=== PATIENT | male | born 1970 | race Hispanic/Latino ===

== ENCOUNTER 2016-10-28 09:26 | Emergency (ER) | payer MEDICAID ==
[2016-10-28 09:45] VITALS: TEMP 97.9; O2SAT 99
[2016-10-28 09:48] VITALS: BMI 25.1
[2016-10-28] MEDS ORDERED: Sodium Chloride 0.9% 1,000 ML IV ONE (09:59)
[2016-10-28 10:12] LABS: ADD MANUAL DIFF? NO; BASO % 1.1 % (0.0-3.0); EOS # 0.5 (0.0-0.7); EOS % 5.4 % (1.5-5.0); GRAN % 63.5 % (50.0-68.0); HEMATOCRIT 44.7 % (42.0-52.0); LYMPH # 2.1 (1.2-3.4); LYMPH % 22.9 % (22.0-35.0); MEAN CELL VOLUME 86.3 fL (80.0-105.0); MEAN CORPUSCULAR HEMOGLOBIN 30.5 pg (25.0-35.0); MEAN CORPUSCULAR HGB CONC 35.3 g/dl (31.0-37.0); MEAN PLATELET VOLUME 10.8 fl (7.0-11.0); MONO # 0.7 (0.1-0.6); MONO % 7.1 % (1.0-6.0); PLATELET COUNT 289 10^3/uL (120.0-450.0); RED CELL DISTRIBUTION WIDTH 12.7 % (11.5-14.5); WHITE BLOOD COUNT 9.1 10^3/ul (4.5-11.0)
[2016-10-28 10:29] LABS: ALB/GLOB RATIO 1.6 (1.1-1.8); ALKALINE PHOSPHATASE 122 U/L (38-133); ALT/SGPT 34 U/L (7-56); AST/SGOT 21 U/L (15-59); BILIRUBIN,TOTAL 0.5 mg/dL (0.2-1.3); BLOOD UREA NITROGEN 15 mg/dL (7-21); CALCIUM 9.8 mg/dL (8.4-10.5); CARBON DIOXIDE 27 mmol/L (21-33); CHLORIDE 105 mmol/L (98-107); GFR AFRICAN-AMERICAN > 60; GLUCOSE,RANDOM 122 mg/dL (70-110); MAGNESIUM 1.9 mg/dL (1.7-2.2); POTASSIUM 4.5 mmol/L (3.6-5.0); SODIUM 140 mmol/L (132-148); TOTAL PROTEIN 7.1 g/dL (5.8-8.3)
[2016-10-28] MEDS ORDERED: oxyCODONE 5 mg Immediate Release Tab PO STA (10:32)
[2016-10-28 10:41] LABS: TROPONIN I < 0.01 ng/mL
--- NOTE | 2016-10-28 11:03 | RAD ---
HISTORY: dizziness COMPARISON: 06/15/2015 FINDINGS: LUNGS: No active pulmonary disease. PLEURA: No significant pleural effusion identified, no pneumothorax apparent. CARDIOVASCULAR: Normal. OSSEOUS STRUCTURES: No significant abnormalities. VISUALIZED UPPER ABDOMEN: Normal. OTHER FINDINGS: None. IMPRESSION: No active disease.
[2016-10-28 11:20] VITALS: RESP 18
[2016-10-28 11:42] LABS: URINE BILIRUBIN NEGATIVE (NEGATIVE); URINE BLOOD MODERATE (NEGATIVE); URINE GLUCOSE (UA) NEGATIVE (NEGATIVE); URINE KETONE NEGATIVE (NEGATIVE); URINE LEUKOCYTE ESTERASE SMALL Leu/uL (NEGATIVE); URINE PROTEIN 30 mg/dL (<30 mg/dL); URINE UROBILINOGEN 0.2 E.U./dL (<1 E.U./dL)
[2016-10-28 11:54] LABS: URINE COLOR YELLOW (YELLOW)
[2016-10-28 11:55] LABS: URINE APPEARANCE CLEAR (CLEAR)
[2016-10-28 12:03] LABS: URINE EPITHELIAL CELLS 0 - 2 /hpf (0-5)
[2016-10-28 12:04] LABS: URINE BACTERIA SMALL (NEG)
--- NOTE | 2016-10-28 12:10 | CT ---
PROCEDURE: CT HEAD WITHOUT CONTRAST. HISTORY: r/o ICH COMPARISON: None available. TECHNIQUE: Axial computed tomography images were obtained through the head/brain without intravenous contrast. Radiation dose: Total exam DLP = 688 mGy-cm. This CT exam was performed using one or more of the following dose reduction techniques: Automated exposure control, adjustment of the mA and/or kV according to patient size, and/or use of iterative reconstruction technique. FINDINGS: HEMORRHAGE: No intracranial hemorrhage. BRAIN: No mass effect or edema. No atrophy or chronic microvascular ischemic changes. VENTRICLES: Unremarkable. No hydrocephalus. CALVARIUM: Unremarkable. PARANASAL SINUSES: Unremarkable as visualized. No significant inflammatory changes. MASTOID AIR CELLS: Unremarkable as visualized. No inflammatory changes. OTHER FINDINGS: None. IMPRESSION: Normal CT of the Head.
--- NOTE | 2016-10-28 13:24 | ED PDOC ---
Arrival/HPI - General Chief Complaint: Dizziness/Lightheaded Time Seen by Provider: 10/28/16 09:39 Historian: Patient - History of Present Illness Narrative History of Present Illness (Text): 10/28/16 09:40 A 46 year old male presents to the emergency department complaining of dizzy spells and multiple falls over the past 3 days. Patient reports yesterday when walking up the stairs he felt short of breath. He states he went to work this morning but was felling really weak, so he decided to come to the emergency department for evaluation. Patient denies any chest pain or other complaints at this time. Patient mentions 2 years ago he had a nuclear stress test but he does not know the results. PMD: Dr. Butt Time/Duration: Other (3 days) Symptom Onset: Sudden Symptom Course: Intermittent Quality: Other Activities at Onset: Rest Context: Home Past Medical History - Provider Review Nursing Documentation Reviewed: Yes - Infectious Disease Hx of Infectious Diseases: None - Tetanus Immunization Tetanus Immunization: Up to Date - Reproductive Currently : No - Past Medical History Past Medical History: No Previous - Cardiac Hx Pacemaker: No - Pulmonary Hx Respiratory Disorders: No Other/Comment: patient denies - Neurological Hx Paralysis: No - HEENT Hx HEENT Disorder: No Other/Comment: patient denies - Renal Hx Kidney Stones: Yes (STENT) - Endocrine/Metabolic Hx Endocrine Disorders: No Other/Comment: patient denies - Hematological/Oncological Hx Blood Transfusions: No Hx Blood Transfusion Reaction: No - Integumentary Hx Dermatological Disorder: No Other/Comment: patient denies - Musculoskeletal/Rheumatological Hx Musculoskeletal Disorders: Yes - Gastrointestinal Hx Gastrointestinal Disorders: No Other/Comment: patient denies - Genitourinary/Gynecological Hx Genitourinary Disorders: No Other/Comment: patient denies - Psychiatric Hx Emotional Abuse: No Hx Physical Abuse: No Hx Substance Use: No - Past Surgical History Past Surgical History: No Previous - Surgical History Other/Comment: kidney stent - Anesthesia Hx Anesthesia: Yes Hx Anesthesia Reactions: No Hx Malignant Hyperthermia: No - Suicidal Assessment Feels Threatened In Home Enviroment: No Family/Social History - Physician Review Nursing Documentation Reviewed: Yes Family/Social History: Unknown Family HX Smoking Status: Light Smoker < 10 Cigarettes Daily Hx Alcohol Use: Yes Hx Substance Use: No Hx Substance Use Treatment: No Allergies/Home Meds Allergies/Adverse Reactions: Allergies cats Allergy (Intermediate, Uncoded 10/28/16 09:48) RASH polen Allergy (Intermediate, Uncoded 10/28/16 09:48) RASH Home Medications: Home Meds Medication Instructions Recorded Confirmed [place]-3 Fatty Acids [Fish Oil] 300 mg PO DAILY 10/28/16 10/28/16 diaZEpam [Valium] 4 mg PO QID 10/28/16 10/28/16 oxyCODONE/Acetaminophen [Percocet 1 tab PO PRN PRN 10/28/16 10/28/16 5/325 mg Tab] Review of Systems - Physician Review All systems were reviewed & negative as marked: Yes - Review of Systems Constitutional: Fatigue, Other (falls). absent: Fevers Cardiovascular: CONNOLLY. absent: Chest Pain Neurological: Dizziness Physical Exam Vital Signs Reviewed: Yes Vital Signs Temp Pulse Resp BP Pulse Ox 10/28/16 15:00 69 18 121/63 99 10/28/16 13:08 75 18 122/66 99 10/28/16 12:15 79 18 124/68 99 10/28/16 11:20 89 18 126/71 99 10/28/16 09:27 97.9 F 93 H 22 108/74 99 Temperature: Afebrile Blood Pressure: Normal Pulse: Regular Respiratory Rate: Normal Appearance: Positive for: Well-Appearing, Non-Toxic, Comfortable Pain Distress: None Mental Status: Positive for: Alert and Oriented X 3 Finger Stick Blood Glucose: 140 - Systems Exam Head: Present: Atraumatic, Normocephalic Pupils: Present: PERRL Extroacular Muscles: Present: EOMI Conjunctiva: Present: Normal Mouth: Present: Moist Mucous Membranes Neck: Present: Normal Range of Motion Respiratory/Chest: Present: Clear to Auscultation, Good Air Exchange. No: Respiratory Distress, Accessory Muscle Use Cardiovascular: Present: Regular Rate and Rhythm, Normal S1, S2. No: Murmurs Abdomen: Present: Normal Bowel Sounds. No: Tenderness, Distention, Peritoneal Signs Back: Present: Normal Inspection Upper Extremity: Present: Normal Inspection. No: Cyanosis, Edema Lower Extremity: Present: Normal Inspection. No: Edema Neurological: Present: GCS=15, CN II-XII Intact, Speech Normal Skin: Present: Warm, Dry, Normal Color. No: Rashes Psychiatric: Present: Alert, Oriented x 3, Normal Insight, Normal Concentration Medical Decision Making ED Course and Treatment: 10/28/16 09:40 Impression: A 46 year old male with dizziness, dyspnea on exertion, and generalized weakness. Differential Diagnosis include but are not limited to: ACS vs. Vertigo vs. electrolyte imbalance Plan: -- EKG -- Chest X-ray -- Labs -- Urinalysis -- Antivert, Oxycodone, and IV Fluids -- Reassess and disposition Prior Visits: Notes and results from previous visits were reviewed. The patient last presented to the emergency department on 06/15/16 for evaluation of worsening lower back pain. Progress Notes: EKG: Ordered, reviewed, and independently interpreted the EKG. Rate : 99 BPM Rhythm : NSR Interpretation : No ST-segment elevations or depressions, no T-wave inversions, normal intervals. 10/28/16 11:05 Chest X-ray: Creator : Davion Aquino MD COMPARISON: 06/15/2015 FINDINGS: LUNGS: No active pulmonary disease. PLEURA: No significant pleural effusion identified, no pneumothorax apparent. CARDIOVASCULAR: Normal. OSSEOUS STRUCTURES: No significant abnormalities. VISUALIZED UPPER ABDOMEN: Normal. OTHER FINDINGS: None. IMPRESSION: No active disease. 10/28/16 12:[address] Husain, who is aware and agrees with the plan to place the patient in Telemetry for observation for near syncope and dizziness under his services. I have discussed the results and plan with the patient, who expresses understanding. Patient given the opportunity to ask question, all questions were answered and there is agreement with the plan to be admitted to the hospital. 10/28/16 12:[address]: Creator : Jame Navarro MD COMPARISON: None available. FINDINGS: HEMORRHAGE: No intracranial hemorrhage. BRAIN: No mass effect or edema. No atrophy or chronic microvascular ischemic changes. VENTRICLES: Unremarkable. No hydrocephalus. CALVARIUM: Unremarkable. PARANASAL SINUSES: Unremarkable as visualized. No significant inflammatory changes. MASTOID AIR CELLS: Unremarkable as visualized. No inflammatory changes. OTHER FINDINGS: None. IMPRESSION: Normal CT of the Head. - Lab Interpretations Lab Results: 10/28/16 09:59 10/28/16 09:59 Lab Results 10/28/16 11:25: Urine Color Yellow, Urine Appearance Clear, Urine pH 7.0, Ur Specific [place] 1.010, Urine Protein 30 H, Urine Glucose (UA) Negative, Urine Ketones Negative, Urine Blood Moderate H, Urine Nitrate Negative, Urine Bilirubin Negative, Urine Urobilinogen 0.2, Ur Leukocyte Esterase Small H, Urine RBC 2 - 5, Urine WBC 5 - 10, Ur Epithelial Cells 0 - 2, Urine Bacteria Small 10/28/16 09:59: Sodium 140, Potassium 4.5, Chloride 105, Carbon Dioxide 27, Anion Gap 13, BUN 15, Creatinine 0.9, Est GFR ( Amer) > 60, Est GFR (Non- Af Amer) > 60, Random Glucose 122 H, Calcium 9.8, Magnesium 1.9, Total Bilirubin 0.5, AST 21, ALT 34, Alkaline Phosphatase 122, Lactate Dehydrogenase 345, Total Creatine Kinase < 20 L, Troponin I < 0.01, Total Protein 7.1, Albumin 4.4, Globulin 2.7, Albumin/Globulin Ratio 1.6 10/28/16 09:59: WBC 9.1 D, RBC 5.18, Hgb 15.8, Hct 44.7, MCV 86.3, MCH 30.5, MCHC 35.3, RDW 12.7, Plt Count 289, MPV 10.8, Gran % 63.5, Lymph % (Auto) 22.9, [place] % (Auto) 7.1 H, Eos % (Auto) 5.4 H, Baso % (Auto) 1.1, Gran # 5.80, Lymph # 2.1, [place] # 0.7 H, Eos # 0.5, Baso # 0.10 10/28/16 09:32: POC Glucose (mg/dL) 140 H I have reviewed the lab results: Yes - RAD Interpretation Radiology Orders: 10/28/16 10:00 CHEST PORTABLE [RAD] Stat 10/28/16 10:32 HEAD W/O CONTRAST [CT] Stat - Medication Orders Current Medication Orders: Discontinued Medications Sodium Chloride (Sodium Chloride 0.9%) 1,000 mls @ 250 mls/hr IV .Q4H ONE Stop: 10/28/16 13:58 Last Admin: 10/28/16 10:00 Dose: 250 mls/hr Meclizine HCl (Antivert) 25 mg PO STAT STA Stop: 10/28/16 10:00 Last Admin: 10/28/16 10:15 Dose: 25 mg Oxycodone HCl (Oxycodone Immediate Release Tab) 5 mg PO STAT STA Stop: 10/28/16 10:33 Last Admin: 10/28/16 11:37 Dose: 5 mg - Scribe Statement The provider has reviewed the documentation as recorded by the Analia Gore Provider Scribe Attestation: All medical record entries made by the Scribe were at my direction and personally dictated by me. I have reviewed the chart and agree that the record accurately reflects my personal performance of the history, physical exam, medical decision making, and the department course for this patient. I have also personally directed, reviewed, and agree with the discharge instructions and disposition. Disposition/Present on Arrival - Present on Arrival Any Indicators Present on Arrival: No History of DVT/PE: No History of Uncontrolled Diabetes: No Urinary Catheter: No History of Decub. Ulcer: No History Surgical Site Infection Following: None - Disposition Have Diagnosis and Disposition been Completed?: Yes Diagnosis: Vasovagal near syncope Disposition: HOSPITALIZED Disposition Time: 12:15 Patient Plan: Telemetry Condition: STABLE Referrals: Araceli Butt DO [Primary Care Provider] - Follow up with primary
[2016-10-28 15:00] VITALS: BP 121/63; PULSE 69
--- NOTE | 2016-10-28 15:15 | CARD ---
APPROVED REPORT EKG Measurement Heart [id number] <Conclusion> Normal sinus rhythm Normal ECG
== END 2016-10-28 15:29 | disposition short-term general hospital (02) ==
LOC: ED 09:26 → UNDOADMOB 12:00 → ERH 12:00 → ED 15:29
DX: R55 Syncope and collapse (principal)
CPT/HCPCS: 70450; 71010; 80053; 81001; 82550; 82948; 83615; 83735; 84484; 85025; 87086; 93005; 96360; 96361; 99285; J7040

== ENCOUNTER 2017-10-12 13:21 | Emergency (ER) | payer MEDICAID ==
--- NOTE | 2017-10-12 13:25 | ED PDOC ---
Arrival/HPI - General Time Seen by Provider: 10/12/17 13:24 Historian: Patient - History of Present Illness Narrative History of Present Illness (Text): 10/12/17 13:25 47 y/o male, pmh including renal colic/Cervical disc protrusion with disc bulging, nkda, c/o rt. sided neck pain radiating to the rt. shoulder joint started 12 pm yesterday. Aching pain, aggravated by the rt. shoulder and neck movement, no numbness or tingling, no palpitation, no rash, no pain medication taken at home, no tearing sensation, no cold sweats, no other medical or psychological complaints. Past Medical History - Provider Review Nursing Documentation Reviewed: Yes - Infectious Disease Hx of Infectious Diseases: None - Tetanus Immunization Tetanus Immunization: Up to Date - Past Medical History Past Medical History: No Previous - Cardiac Hx Pacemaker: No - Pulmonary Hx Respiratory Disorders: No Other/Comment: patient denies - Neurological Hx Paralysis: No - HEENT Hx HEENT Disorder: No Other/Comment: patient denies - Renal Hx Kidney Stones: Yes (STENT) - Endocrine/Metabolic Hx Endocrine Disorders: No Other/Comment: patient denies - Hematological/Oncological Hx Blood Transfusions: No Hx Blood Transfusion Reaction: No - Integumentary Hx Dermatological Disorder: No Other/Comment: patient denies - Musculoskeletal/Rheumatological Hx Musculoskeletal Disorders: Yes - Gastrointestinal Hx Gastrointestinal Disorders: No Other/Comment: patient denies - Genitourinary/Gynecological Hx Genitourinary Disorders: No Other/Comment: patient denies - Psychiatric Hx Emotional Abuse: No Hx Physical Abuse: No Hx Substance Use: No - Past Surgical History Past Surgical History: No Previous - Surgical History Other/Comment: kidney stent - Anesthesia Hx Anesthesia: Yes Hx Anesthesia Reactions: No Hx Malignant Hyperthermia: No - Suicidal Assessment Feels Threatened In Home Enviroment: No Family/Social History - Physician Review Nursing Documentation Reviewed: Yes Family/Social History: Unknown Family HX Smoking Status: Light Smoker < 10 Cigarettes Daily Hx Alcohol Use: Yes Hx Substance Use: No Hx Substance Use Treatment: No Allergies/Home Meds Allergies/Adverse Reactions: Allergies cats Allergy (Intermediate, Uncoded 10/12/17 14:00) RASH polen Allergy (Intermediate, Uncoded 10/12/17 14:00) RASH Home Medications: Home Meds Medication Instructions Recorded Confirmed [place]-3 Fatty Acids [Fish Oil] 300 mg PO DAILY 10/28/16 10/28/16 diaZEpam [Valium] 4 mg PO QID 10/28/16 10/12/17 oxyCODONE/Acetaminophen [Percocet 1 tab PO PRN PRN 10/28/16 10/12/17 5/325 mg Tab] Review of Systems - Review of Systems Constitutional: absent: Fatigue, Fevers Eyes: absent: Vision Changes ENT: absent: Hearing Changes Respiratory: absent: SOB, Cough Cardiovascular: absent: Chest Pain Gastrointestinal: absent: Abdominal Pain, Nausea, Vomiting Musculoskeletal: Arthralgias, Neck Pain, Myalgias. absent: Back Pain, Joint Swelling Skin: absent: Rash, Pruritis Neurological: absent: Headache, Dizziness Psychiatric: absent: Anxiety, Depression, Suicidal Ideation Physical Exam Vital Signs Reviewed: Yes Vital Signs Temp Pulse Resp BP Pulse Ox 10/12/17 13:40 97.3 F L 91 H 20 116/74 99 Temperature: Afebrile Blood Pressure: Normal Pulse: Regular Respiratory Rate: Normal Appearance: Positive for: Well-Appearing, Non-Toxic, Comfortable Pain Distress: Moderate Mental Status: Positive for: Alert and Oriented X 3 - Systems Exam Head: Present: Atraumatic, Normocephalic Pupils: Present: PERRL Extroacular Muscles: Present: EOMI Conjunctiva: Present: Normal Mouth: Present: Moist Mucous Membranes Neck: Present: Normal Range of Motion, Paraspinal Tenderness (+rt. paraspinal tenderness and spasm with 100% reproducible pain). No: Meningeal Signs, MIDLINE TENDERNESS Respiratory/Chest: Present: Clear to Auscultation, Good Air Exchange. No: Respiratory Distress, Accessory Muscle Use, Wheezes, Decreased Breath Sounds, Rales, Retracting, Rhonchi, Tachypneic Cardiovascular: Present: Regular Rate and Rhythm, Normal S1, S2. No: Murmurs Abdomen: No: Tenderness, Distention, Peritoneal Signs, Rebound, Guarding Back: Present: Normal Inspection. No: CVA Tenderness, Midline Tenderness, Paraspinal Tenderness Upper Extremity: Present: Normal Inspection, Other (Rt. shoulder: +ttp and spasm noted on the rt. posterior trapezius muscle pattern region with pain 100% reproducible, active movement causing the pain, no deformity, +radial pulse, capillary refill< 2 seconds, same skin color and same warmth compared to the LUE, neurovascular intact. ). No: Cyanosis, Edema Lower Extremity: Present: Normal Inspection. No: Edema Neurological: Present: GCS=15, CN II-XII Intact, Speech Normal Skin: Present: Warm, Dry, Normal Color. No: Rashes Psychiatric: Present: Alert, Oriented x 3, Normal Insight, Normal Concentration Medical Decision Making ED Course and Treatment: 10/12/17 13:48 -labs/cardiac enzyme -ekg -cxr -gallbladder sonogram -IVF/toradol/valium -observe and reassess 10/12/17 15:52 -EKG: NSR @ 86 BPM, no ST elevation or depression, no T wave inversion -Chest xray show no active disease -Gallbladder sonogram show Contracted gallbladder unremarkable appearance overall. Normal common bile duct caliber. No choledocholithiasis identified. Partial imaging of the pancreas. Borderline hydronephrosis which is a stable appearance compared prior unenhanced abdomen pelvis CT 04/17/2017. Small intrarenal calculi are questioned versus prominent perisinus fat. No perinephric fluid collection identified. Complex cysts is identified at the midpole right kidney 1.8 cm. -Labs show no acute findings -Troponin after 24 hours is negative -Lipase is negative. Pt. has no urinary symptoms. -Case discussed/sonogram result discussed with Dr. Alves, he agreed on the dispo and treatment plan. -Pt. feels asymptomatic, much better, no pain, request to be discharged home. All labs/radiology results discussed with the patient. -Discharge home with mobic, flexeril, lidoderm patch, copy of the sonogram result provided as well for you to bring to the specialists and pmd within 2 days, return to the ER for any new or worsening signs or symptoms. - Lab Interpretations Lab Results: 10/12/17 15:11 10/12/17 15:11 Lab Results 10/12/17 15:11: WBC 8.3, RBC 4.84, Hgb 14.6, Hct 41.1 L, MCV 84.9, MCH 30.2, MCHC 35.5, RDW 12.6, Plt Count 236, MPV 10.2, Gran % 57.0, Lymph % (Auto) 30.4, [place] % (Auto) 7.5 H, Eos % (Auto) 4.1, Baso % (Auto) 1.0, Gran # 4.72, Lymph # ( Auto) 2.5, [place] # (Auto) 0.6, Eos # (Auto) 0.3, Baso # (Auto) 0.08 10/12/17 15:11: Sodium 143, Potassium 4.2, Chloride 107, Carbon Dioxide 26, Anion Gap 14, BUN 13, Creatinine 0.7 L, Est GFR ( Amer) > 60, Est GFR ( Non-Af Amer) > 60, Random Glucose 78, Calcium 9.6, Magnesium 1.9, Total Bilirubin 0.4, AST 18, ALT 30, Alkaline Phosphatase 106, Lactate Dehydrogenase 333, Total Creatine Kinase < 20 L, Troponin I < 0.01, Total Protein 6.6, Albumin 4.1, Globulin 2.5, Albumin/Globulin Ratio 1.7, Lipase 60 I have reviewed the lab results: Yes - RAD Interpretation Radiology Orders: 10/12/17 13:42 GALL BLADDER [US] Stat 10/12/17 13:44 CHEST TWO VIEWS (PA/LAT) [RAD] Stat Chest xray: LUNGS: No active pulmonary disease. PLEURA: No significant pleural effusion identified. No pneumothorax apparent. CARDIOVASCULAR: Normal. OSSEOUS STRUCTURES: No significant abnormalities. VISUALIZED UPPER ABDOMEN: Normal. OTHER FINDINGS: None. IMPRESSION: No active disease. ----- Gallbladder sonogram: LIVER: Measures 14.4 cm in length. Normal echogenicity of the liver parenchyma. Normal directional blood flow is appreciate at the main portal vein with the abdominal aorta and inferior vena cava appearing patent. No mass. No intrahepatic bile duct dilatation. GALLBLADDER: Largely contracted. No gallstones. COMMON BILE DUCT: Measures 4.7 mm. No stones. No dilatation. PANCREAS: The tail of the pancreas is obscured by overlying bowel gas with remainder unremarkable. RIGHT KIDNEY: Measures 12.2 cm in length. There is borderline right hydronephrosis. Prominent perisinus fat is favored over small calculus at the lower pole right kidney. A complex cysts is identified at the midpole right kidney measuring 1.8 x 1.8 x 1.4 cm. Remainder of the right kidney appears unremarkable. AORTA: No aneurysmal dilatation. IVC: Unremarkable. OTHER FINDINGS: None . IMPRESSION: 1. Contracted gallbladder unremarkable appearance overall. Normal common bile duct caliber. No choledocholithiasis identified. 2. Partial imaging of the pancreas. 3. Borderline hydronephrosis which is a stable appearance compared prior unenhanced abdomen pelvis CT 04/17/2017. Small intrarenal calculi are questioned versus prominent perisinus fat. No perinephric fluid collection identified. Complex cysts is identified at the midpole right kidney 1.8 cm. Sales Service Professional: Radiologist - Medication Orders Current Medication Orders: Sodium Chloride (Sodium Chloride 0.9%) 1,000 mls @ 100 mls/hr IV .Q10H [facility] [place] Last Admin: 10/12/17 14:59 Dose: 100 mls/hr eMAR Start Stop Document 10/12/17 14:59 [facility] (Rec: 10/12/17 15:00 [facility] [id number]) Intravenous Solution Start Date 10/12/17 Start Time 14:59 Discontinued Medications Diazepam (Valium) 5 mg PO ONCE ONE PRN Reason: Protocol Stop: 10/12/17 13:43 Last Admin: 10/12/17 15:01 Dose: 5 mg Ketorolac Tromethamine (Toradol) 30 mg IVP STAT STA Stop: 10/12/17 13:43 Last Admin: 10/12/17 15:01 Dose: 30 mg MAR Pain Assessment Document 10/12/17 15:01 [facility] (Rec: 10/12/17 15:01 [facility] [id number]) Pain Reassessment Is this a pain reassessment? No IVP Administration Document 10/12/17 15:01 [facility] (Rec: 10/12/17 15:01 [facility] [id number]) Charges for Administration # of IVP Administrations 1 - PA / FENCE SUPERVISOR / Resident Statement MD/DO has reviewed & agrees with the documentation as recorded. Disposition/Present on Arrival - Present on Arrival Any Indicators Present on Arrival: No History of DVT/PE: No History of Uncontrolled Diabetes: No Urinary Catheter: No History of Decub. Ulcer: No History Surgical Site Infection Following: None - Disposition Have Diagnosis and Disposition been Completed?: Yes Diagnosis: Muscle spasm, Myalgia, Kidney stone Disposition: HOME/ ROUTINE Disposition Time: 13:50 Patient Plan: Discharge Condition: IMPROVED Additional Instructions: -Discharge home with mobic, flexeril, lidoderm patch, copy of the sonogram result provided as well for you to bring to the specialists and pmd within 2 days, return to the ER for any new or worsening signs or symptoms. Prescriptions: Cyclobenzaprine [Cyclobenzaprine HCl] 10 mg PO TID PRN #21 tab PRN Reason: Other Lidocaine 5% [Lidoderm] 1 patch TP DAILY PRN #14 patch PRN Reason: Other Meloxicam [Mobic] 15 mg PO DAILY PRN #14 tab PRN Reason: Other Referrals: Araceli Butt DO [Primary Care Provider] - Follow up with primary Laron Santana MD [Staff Provider] - Follow up with primary Mark Crews DO [Staff Provider] - Follow up with primary Forms: WORK NOTE
[2017-10-12 13:45] VITALS: BMI 25.9
[2017-10-12] MEDS ORDERED: Sodium Chloride 0.9% 1,000 ML IV SCH (13:45)
--- NOTE | 2017-10-12 14:50 | US ---
HISTORY: rt. shoulder pain, cholecystitis? COMPARISON: Abdomen CT without contrast 04/17/2017. TECHNIQUE: Sonographic evaluation of the right upper quadrant of the abdomen. FINDINGS: LIVER: Measures 14.4 cm in length. Normal echogenicity of the liver parenchyma. Normal directional blood flow is appreciate at the main portal vein with the abdominal aorta and inferior vena cava appearing patent. No mass. No intrahepatic bile duct dilatation. GALLBLADDER: Largely contracted. No gallstones. COMMON BILE DUCT: Measures 4.7 mm. No stones. No dilatation. PANCREAS: The tail of the pancreas is obscured by overlying bowel gas with remainder unremarkable. RIGHT KIDNEY: Measures 12.2 cm in length. There is borderline right hydronephrosis. Prominent perisinus fat is favored over small calculus at the lower pole right kidney. A complex cysts is identified at the midpole right kidney measuring 1.8 x 1.8 x 1.4 cm. Remainder of the right kidney appears unremarkable. AORTA: No aneurysmal dilatation. IVC: Unremarkable. OTHER FINDINGS: None . IMPRESSION: 1. Contracted gallbladder unremarkable appearance overall. Normal common bile duct caliber. No choledocholithiasis identified. 2. Partial imaging of the pancreas. 3. Borderline hydronephrosis which is a stable appearance compared prior unenhanced abdomen pelvis CT 04/17/2017. Small intrarenal calculi are questioned versus prominent perisinus fat. No perinephric fluid collection identified. Complex cysts is identified at the midpole right kidney 1.8 cm.
[2017-10-12 15:16] LABS: BASO # 0.08 K/mm3 (0.0-2.0); EOS # 0.3 (0.0-0.7); EOS % 4.1 % (1.5-5.0); GRAN # 4.72 (1.4-6.5); HEMOGLOBIN 14.6 g/dL (14.0-18.0); LYMPH # 2.5 (1.2-3.4); LYMPH % 30.4 % (22.0-35.0); MEAN CELL VOLUME 84.9 fl (80.0-105.0); MEAN CORPUSCULAR HEMOGLOBIN 30.2 pg (25.0-35.0); MEAN CORPUSCULAR HGB CONC 35.5 g/dl (31.0-37.0); MEAN PLATELET VOLUME 10.2 fl (7.0-11.0); MONO # 0.6 (0.1-0.6); MONO % 7.5 % (1.0-6.0); RBC 4.84 10^6/uL (3.5-6.1); RED CELL DISTRIBUTION WIDTH 12.6 % (11.5-14.5); WHITE BLOOD COUNT 8.3 10^3/ul (4.5-11.0)
[2017-10-12 15:26] LABS: ALBUMIN 4.1 g/dL (3.0-4.8); BLOOD UREA NITROGEN 13 mg/dL (7-21); CALCIUM 9.6 mg/dL (8.4-10.5); GFR AFRICAN-AMERICAN > 60; GFR NON-AFRICAN AMERICAN > 60
[2017-10-12 15:27] LABS: ALB/GLOB RATIO 1.7 (1.1-1.8); ALT/SGPT 30 U/L (7-56); AST/SGOT 18 U/L (17-59); LIPASE 60 U/L (23-300)
[2017-10-12 15:38] LABS: TROPONIN I < 0.01 ng/mL
--- NOTE | 2017-10-12 15:46 | RAD ---
HISTORY: medical clearance COMPARISON: 10/28/2016 TECHNIQUE: Chest PA and lateral FINDINGS: LUNGS: No active pulmonary disease. PLEURA: No significant pleural effusion identified. No pneumothorax apparent. CARDIOVASCULAR: Normal. OSSEOUS STRUCTURES: No significant abnormalities. VISUALIZED UPPER ABDOMEN: Normal. OTHER FINDINGS: None. IMPRESSION: No active disease.
[2017-10-12 16:10] VITALS: BP 111/69; PULSE 70; RESP 18; O2SAT 98
[2017-10-12 16:32] VITALS: TEMP 97.9
--- NOTE | 2017-10-13 10:05 | CARD ---
APPROVED REPORT EKG Measurement Heart [id number] <Conclusion> Normal sinus rhythm J point elevations c/w early repolarization No change
== END 2017-10-12 16:31 | disposition home or self-care (01) ==
LOC: ED 13:21
DX: N20.0 Calculus of kidney (principal); M79.1 Myalgia; M62.838 Other muscle spasm; F17.210 Nicotine dependence, cigarettes, uncomplicated
CPT/HCPCS: 71046; 76705; 80053; 82550; 83615; 83690; 83735; 84484; 85025; 93005; 96374; 99284; J1885; J7040

== ENCOUNTER 2018-01-18 12:21 | Emergency (ER) | payer MEDICAID ==
[2018-01-18 12:22] VITALS: BMI 25.1
[2018-01-18] MEDS ORDERED: Lidocaine/Epi 1% 1:100000 20 ML IJ ONE (13:25)
[2018-01-18] MEDS ORDERED: TDAP Vaccine 0.5 mL Syr IM ONE (13:34)
--- NOTE | 2018-01-18 13:37 | ED PDOC ---
Arrival/HPI - General Chief Complaint: Abnormal Skin Integrity Time Seen by Provider: 01/18/18 12:39 Historian: Patient - History of Present Illness Narrative History of Present Illness (Text): 01/18/18 13:32 47 year old male, with no significant past medical history, who presents to the ED complaining of a laceration to the second digit of the left hand [employer]. Patient notes he was using a "sawbit" and accidentally hit the trigger, cutting his finger. Patient denies any chest pain, back pain, neck pain, fever, chills, nausea, vomiting, or any other complaints. Anishwenrique last tetanus. 01/19/18 00:34 Time/Duration: Prior to Arrival Symptom Onset: Sudden Symptom Course: Unchanged Activities at Onset: Light Context: Work Past Medical History - Provider Review Nursing Documentation Reviewed: Yes - Infectious Disease Hx of Infectious Diseases: None - Tetanus Immunization Tetanus Immunization: Up to Date - Past Medical History Past Medical History: No Previous - Cardiac Hx Cardiac Disorders: No - Pulmonary Hx Respiratory Disorders: Yes Hx Bronchitis: Yes - Neurological Hx Neurological Disorder: No - HEENT Hx HEENT Disorder: No - Renal Hx Renal Disorder: Yes Hx Kidney Stones: Yes (STENT) - Endocrine/Metabolic Hx Endocrine Disorders: No - Hematological/Oncological Hx Blood Disorders: No - Integumentary Hx Dermatological Disorder: Yes Other/Comment: ABSCESS - Musculoskeletal/Rheumatological Hx Musculoskeletal Disorders: Yes Hx Back Pain: Yes - Gastrointestinal Hx Gastrointestinal Disorders: Yes Hx Gastroesophageal Reflux: Yes - Genitourinary/Gynecological Hx Genitourinary Disorders: Yes Other/Comment: URINE RETENTION - Psychiatric Hx Psychophysiologic Disorder: Yes Hx Depression: Yes Hx Substance Use: Yes (CANNABIS) - Past Surgical History Past Surgical History: No Previous - Surgical History Other/Comment: kidney stent - Anesthesia Hx Anesthesia: Yes Hx Anesthesia Reactions: No Hx Malignant Hyperthermia: No - Suicidal Assessment Feels Threatened In Home Enviroment: No Family/Social History - Physician Review Nursing Documentation Reviewed: Yes Family/Social History: Unknown Family HX Smoking Status: Light Smoker < 10 Cigarettes Daily Hx Alcohol Use: Yes Hx Substance Use: Yes (CANNABIS) Hx Substance Use Treatment: No Allergies/Home Meds Allergies/Adverse Reactions: Allergies cats Allergy (Intermediate, Uncoded 01/18/18 12:33) RASH polen Allergy (Intermediate, Uncoded 01/18/18 12:33) RASH Home Medications: Home Meds Medication Instructions Recorded Confirmed [place]-3 Fatty Acids [Fish Oil] 300 mg PO DAILY 10/28/16 01/18/18 oxyCODONE/Acetaminophen [Percocet 1 tab PO PRN PRN 10/28/16 01/18/18 5/325 mg Tab] Esomeprazole Magnesium [Nexium] 40 mg PO DAILY 01/18/18 01/18/18 Review of Systems - Physician Review All systems were reviewed & negative as marked: Yes - Review of Systems Constitutional: Normal Eyes: Normal ENT: Normal Respiratory: Normal. absent: SOB, Cough Cardiovascular: Normal. absent: Chest Pain Gastrointestinal: Normal. absent: Abdominal Pain, Diarrhea, Nausea, Vomiting Genitourinary Male: Normal. absent: Dysuria, Frequency Musculoskeletal: Normal. absent: Back Pain, Neck Pain Skin: Laceration (second digit left hand). absent: Rash Neurological: Normal Endocrine: Normal Hemo/Lymphatic: Normal Psychiatric: Normal Physical Exam Vital Signs Reviewed: Yes Vital Signs Temp Pulse Resp BP Pulse Ox 01/18/18 15:15 98.6 F 78 18 138/76 97 01/18/18 15:12 98.6 F 78 18 138/76 97 01/18/18 12:34 98.1 F 81 16 117/78 95 Temperature: Afebrile Blood Pressure: Normal Pulse: Regular Respiratory Rate: Normal Appearance: Positive for: Well-Appearing, Non-Toxic, Comfortable Pain Distress: None Mental Status: Positive for: Alert and Oriented X 3 - Systems Exam Head: Present: Atraumatic, Normocephalic Pupils: Present: PERRL Extroacular Muscles: Present: EOMI Conjunctiva: Present: Normal Mouth: Present: Moist Mucous Membranes Neck: Present: Normal Range of Motion Respiratory/Chest: Present: Clear to Auscultation, Good Air Exchange. No: Respiratory Distress, Accessory Muscle Use Cardiovascular: Present: Regular Rate and Rhythm, Normal S1, S2. No: Murmurs Abdomen: No: Tenderness, Distention, Peritoneal Signs Back: Present: Normal Inspection Upper Extremity: Present: Normal Inspection. No: Cyanosis, Edema Lower Extremity: Present: Normal Inspection. No: Edema Neurological: Present: GCS=15, CN II-XII Intact, Speech Normal Skin: Present: Warm, Dry, Laceration (2.5cm laceration to the second digit palm of left hand; good neurovascular distal to laceration. No tendon involvement). No: Rashes Psychiatric: Present: Alert, Oriented x 3, Normal Insight, Normal Concentration Medical Decision Making ED Course and Treatment: 01/18/18 13:39 Impression: 47 year old male presents to the ED c/o laceration to the second digit of left hand. N/V intact distally. Tdap given. No tendon involvement. Plan: -- Lidocaine -- TDAP vaccine Progress Notes: PROCEDURE: LACERATION REPAIR Performed by the emergency provider Location: second digit of left hand Length: 2.5 cm Description: clean wound edges Distal CMS: Normal. No deficits. Neurovascularly intact. Anesthesia: Lidocaine 1% Preparation: The wound was cleaned with NS and [place]. The area was prepped and draped in the usual sterile fashion. Exploration: The wound was explored and no foreign bodies were found. Procedure: The wound was closed with 4.0 nylon. There was good approximation. In total, 10 sutures were used. Post-Procedure: Good closure and hemostasis. The patient tolerated the procedure well and there were no complications. CSM remains intact. Post procedure dressing applied. 01/19/18 00:34 01/19/18 00:34 - Medication Orders Current Medication Orders: Discontinued Medications Lidocaine/Epinephrine (Lidocaine/Epi 1% [id number] 20 Ml) 1 ml IJ ONCE ONE Stop: 01/18/18 13:26 Last Admin: 01/18/18 13:33 Dose: 1 ml Tetanus/Reduced Diphtheria/Acell Pertussis (Boostrix Vaccine Inj) 0.5 ml IM .ONCE ONE Stop: 01/18/18 13:35 Last Admin: 01/18/18 14:58 Dose: 0.5 ml [facility] Immunization Data Document 01/18/18 14:58 (Rec: 01/18/18 14:58 [email or web address]) Immunization Data Vaccine Information Sheet Given Yes Vaccine Information Sheet Given Date 01/18/18 Immunization Registry Document 01/18/18 14:58 (Rec: 01/18/18 14:58 [email or web address]) Immunization Registry Consent Date 06/20/17 - Scribe Statement The provider has reviewed the documentation as recorded by the Scribchace Ambriz All medical record entries made by the Scribe were at my direction and personally dictated by me. I have reviewed the chart and agree that the record accurately reflects my personal performance of the history, physical exam, medical decision making, and the department course for this patient. I have also personally directed, reviewed, and agree with the discharge instructions and disposition. Disposition/Present on Arrival - Present on Arrival Any Indicators Present on Arrival: No History of DVT/PE: No History of Uncontrolled Diabetes: No Urinary Catheter: No History of Decub. Ulcer: No History Surgical Site Infection Following: None - Disposition Have Diagnosis and Disposition been Completed?: Yes Diagnosis: Laceration of finger Disposition: HOME/ ROUTINE Disposition Time: 14:30 Condition: GOOD Discharge Instructions (ExitCare): Laceration Repair, Laceration Repair With Stitches (DC) Additional Instructions: Have sutures removed either here or your primary care doctors office in 7-10 days. Return earlier if worsening pain, drainage from wound, redness to wound that spreads or any other issues. JENISE VELAZQUEZ, thank you for letting us take care of you today. Your provider was Jose Gonzalez and you were treated for INJURY TO FINGER AND BLEEDING. The emergency medical care you received today was directed at your acute symptoms. If you were prescribed any medication, please fill it and take as directed. It may take several days for your symptoms to resolve. Return to the Emergency Department if your symptoms worsen, do not improve, or if you have any other problems. Please contact your doctor or call one of the physicians/clinics you have been referred to that are listed on the Patient Visit Information form that is included in your discharge packet. Bring any paperwork you were given at discharge with you along with any medications you are taking to your follow up visit. Our treatment cannot replace ongoing medical care by a primary care provider outside of the emergency department. Thank you for allowing the [facility] team to be part of your care today. If you had an X-Ray or CT scan: A Radiologist will review the ED reading if any change in treatment is needed we will contact you. If you had a blood, urine, or wound culture: It will take several days for the results, if any change in treatment is needed we will contact you. If you had an STI test: It will take 48 hours for the results. Please call after 1 week if you have not heard back. Prescriptions: Cephalexin [cephalexin] 500 mg PO QID 3 Days #12 cap Referrals: Dinora Bella MD [Medical Doctor] - Follow up with primary Forms: Ship It Bag Check (Indonesian)
[2018-01-18 15:13] VITALS: BP 138/76; PULSE 78; RESP 18; TEMP 98.6; O2SAT 97
== END 2018-01-18 15:16 | disposition home or self-care (01) ==
LOC: ED 12:21
DX: S61.211A Laceration without foreign body of left index finger without damage to nail, initial encounter (principal); W45.8XXA Other foreign body or object entering through skin, initial encounter; Y99.0 Civilian activity done for income or pay; Z23 Encounter for immunization; F17.210 Nicotine dependence, cigarettes, uncomplicated

== ENCOUNTER 2018-01-31 17:01 | Emergency (ER) | payer MEDICAID ==
--- NOTE | 2018-01-31 17:44 | ED PDOC ---
Arrival/HPI - General Time Seen by Provider: 01/31/18 17:32 Historian: Patient - History of Present Illness Narrative History of Present Illness (Text): 01/31/18 17:41 47yo male who present to ED for suture removal. sutures was placed here . He denies purulent discharge, redness, fever, any other complaint. Past Medical History - Provider Review Nursing Documentation Reviewed: Yes - Infectious Disease Hx of Infectious Diseases: None - Tetanus Immunization Tetanus Immunization: Up to Date - Past Medical History Past Medical History: No Previous - Cardiac Hx Cardiac Disorders: No - Pulmonary Hx Respiratory Disorders: Yes Hx Bronchitis: Yes - Neurological Hx Neurological Disorder: No - HEENT Hx HEENT Disorder: No - Renal Hx Renal Disorder: Yes Hx Kidney Stones: Yes (STENT) - Endocrine/Metabolic Hx Endocrine Disorders: No - Hematological/Oncological Hx Blood Disorders: No - Integumentary Hx Dermatological Disorder: Yes Other/Comment: ABSCESS - Musculoskeletal/Rheumatological Hx Musculoskeletal Disorders: Yes Hx Back Pain: Yes - Gastrointestinal Hx Gastrointestinal Disorders: Yes Hx Gastroesophageal Reflux: Yes - Genitourinary/Gynecological Hx Genitourinary Disorders: Yes Other/Comment: URINE RETENTION - Psychiatric Hx Psychophysiologic Disorder: Yes Hx Depression: Yes Hx Substance Use: Yes (CANNABIS) - Past Surgical History Past Surgical History: No Previous - Surgical History Other/Comment: kidney stent - Anesthesia Hx Anesthesia: Yes Hx Anesthesia Reactions: No Hx Malignant Hyperthermia: No - Suicidal Assessment Feels Threatened In Home Enviroment: No Family/Social History - Physician Review Nursing Documentation Reviewed: Yes Family/Social History: Unknown Family HX Smoking Status: Light Smoker < 10 Cigarettes Daily Hx Alcohol Use: Yes Hx Substance Use: Yes (CANNABIS) Hx Substance Use Treatment: No Allergies/Home Meds Allergies/Adverse Reactions: Allergies cats Allergy (Intermediate, Uncoded 01/31/18 17:39) RASH polen Allergy (Intermediate, Uncoded 01/31/18 17:39) RASH Home Medications: Home Meds Medication Instructions Recorded Confirmed [place]-3 Fatty Acids [Fish Oil] 300 mg PO DAILY 10/28/16 01/18/18 oxyCODONE/Acetaminophen [Percocet 1 tab PO PRN PRN 10/28/16 01/18/18 5/325 mg Tab] Esomeprazole Magnesium [Nexium] 40 mg PO DAILY 08/16/18 08/16/18 Review of Systems - Physician Review All systems were reviewed & negative as marked: Yes - Review of Systems Constitutional: Normal Eyes: Normal ENT: Normal Respiratory: Normal Cardiovascular: Normal Gastrointestinal: Normal Genitourinary Male: Normal Musculoskeletal: Normal Skin: Other (suture removal form left 2nd finger) Neurological: Normal Endocrine: Normal Hemo/Lymphatic: Normal Psychiatric: Normal Physical Exam Vital Signs Reviewed: Yes Temperature: Afebrile Blood Pressure: Normal Pulse: Regular Respiratory Rate: Normal Appearance: Positive for: Well-Appearing, Non-Toxic, Comfortable Pain Distress: None Mental Status: Positive for: Alert and Oriented X 3 - Systems Exam Head: Present: Atraumatic, Normocephalic Pupils: Present: PERRL Extroacular Muscles: Present: EOMI Conjunctiva: Present: Normal Mouth: Present: Moist Mucous Membranes Neck: Present: Normal Range of Motion Respiratory/Chest: Present: Clear to Auscultation, Good Air Exchange. No: Respiratory Distress, Accessory Muscle Use Cardiovascular: Present: Regular Rate and Rhythm, Normal S1, S2. No: Murmurs Abdomen: No: Tenderness, Distention, Peritoneal Signs Back: Present: Normal Inspection Upper Extremity: Present: Normal Inspection. No: Cyanosis, Edema Lower Extremity: Present: Normal Inspection. No: Edema Neurological: Present: GCS=15, CN II-XII Intact, Speech Normal Skin: Present: Warm, Dry, Normal Color, Other (10sutures noted to left 2nd finger. No erythema. No discharge. No crepitus.). No: Rashes Psychiatric: Present: Alert, Oriented x 3, Normal Insight, Normal Concentration Medical Decision Making ED Course and Treatment: 01/31/18 17:48 Wound cleaned with betadine and 10 sutures removed. Edges appear approximated. Bactiracine applied. Advised to keep wound clean and dry. Disposition/Present on Arrival - Present on Arrival Any Indicators Present on Arrival: No History of DVT/PE: No History of Uncontrolled Diabetes: No Urinary Catheter: No History Surgical Site Infection Following: None - Disposition Have Diagnosis and Disposition been Completed?: Yes Diagnosis: Visit for suture removal Disposition: HOME/ ROUTINE Disposition Time: 17:45 Patient Problems: Current Active Problems Problem Status Onset Visit for suture removal Acute Condition: STABLE Discharge Instructions (ExitCare): Stitches Removal Additional Instructions: Keep wound clean and dry Follow up with your doctor Return to ED for any new symptoms Referrals: Dinora Bella MD [Medical Doctor] - Follow up with primary
[2018-01-31 17:48] VITALS: BP 122/76; BMI 25.4
[2018-01-31 17:58] VITALS: RESP 18; TEMP 99.1
[2018-01-31 17:59] VITALS: PULSE 96; O2SAT 99
== END 2018-01-31 17:59 | disposition home or self-care (01) ==
LOC: ED 17:01
DX: Z48.02 Encounter for removal of sutures (principal); F17.210 Nicotine dependence, cigarettes, uncomplicated

== ENCOUNTER 2018-09-03 19:50 | Observation (INO) | payer MEDICAID ==
[2018-09-03 19:59] VITALS: BMI 28.0
[2018-09-03] MEDS ORDERED: Sodium Chloride 0.9% 1,000 ML IV STA (20:14)
--- NOTE | 2018-09-03 20:20 | ED PDOC ---
Arrival/HPI <Jame Heredia - Last Filed: 09/03/18 22:52> - General Historian: Patient - History of Present Illness Narrative History of Present Illness (Text): 09/03/18 20:17 48-year-old male with past medical history of kidney stones, presents complaining of sudden onset of left flank pain that is constant radiating to the left groin associated with nausea. Patient states that he has had kidney stones nearly every year for the past 5 years, states that he has had to have lithotripsy in the past the stones. Otherwise he reports no fever, chills, vomiting, hematuria, dysuria, abdominal surgeries. Otherwise patient has no other complaints. PMD [facility] Urologist Laron Santana <Jillian Tobin PA-C - Last Filed: 09/04/18 00:09> - General Chief Complaint: Abdominal Pain Time Seen by Provider: 09/03/18 20:01 Past Medical History - Infectious Disease Hx of Infectious Diseases: None - Tetanus Immunization Tetanus Immunization: Up to Date - Past Medical History Past Medical History: No Previous - Cardiac Hx Cardiac Disorders: No - Pulmonary Hx Respiratory Disorders: Yes Hx Bronchitis: Yes - Neurological Hx Neurological Disorder: No - HEENT Hx HEENT Disorder: No - Renal Hx Renal Disorder: Yes Hx Kidney Stones: Yes (STENT) - Endocrine/Metabolic Hx Endocrine Disorders: No - Hematological/Oncological Hx Blood Disorders: No - Integumentary Hx Dermatological Disorder: Yes Other/Comment: ABSCESS - Musculoskeletal/Rheumatological Hx Musculoskeletal Disorders: Yes Hx Back Pain: Yes - Gastrointestinal Hx Gastrointestinal Disorders: Yes Hx Gastroesophageal Reflux: Yes - Genitourinary/Gynecological Hx Genitourinary Disorders: Yes Other/Comment: URINE RETENTION - Psychiatric Hx Psychophysiologic Disorder: Yes Hx Depression: Yes Hx Substance Use: Yes (CANNABIS) - Past Surgical History Past Surgical History: No Previous - Surgical History Other/Comment: kidney stent - Anesthesia Hx Anesthesia: Yes Hx Anesthesia Reactions: No Hx Malignant Hyperthermia: No - Suicidal Assessment Feels Threatened In Home Enviroment: No <Jillian Tobin PA-C - Last Filed: 09/04/18 00:09> Family/Social History Family/Social History: No Known Family HX Smoking Status: Light Smoker < 10 Cigarettes Daily Hx Alcohol Use: Yes Hx Substance Use: Yes (CANNABIS) Hx Substance Use Treatment: No <Jillian Tobin PA-C - Last Filed: 09/04/18 00:09> Allergies/Home Meds <Jame Heredia - Last Filed: 09/03/18 22:52> <Jillian Tobin PA-C - Last Filed: 09/04/18 00:09> Allergies/Adverse Reactions: Allergies cats Allergy (Intermediate, Uncoded 09/03/18 19:59) RASH polen Allergy (Intermediate, Uncoded 09/03/18 19:59) RASH Home Medications: Home Meds Medication Instructions Recorded Confirmed [place]-3 Fatty Acids [Fish Oil] 300 mg PO DAILY 10/28/16 01/18/18 oxyCODONE/Acetaminophen [Percocet 1 tab PO PRN PRN 10/28/16 01/18/18 5/325 mg Tab] Esomeprazole Magnesium [Nexium] 40 mg PO DAILY 01/18/18 01/18/18 Review of Systems - Review of Systems Constitutional: absent: Fatigue, Fevers Respiratory: absent: SOB, Cough Cardiovascular: absent: Chest Pain, Palpitations Gastrointestinal: Abdominal Pain, Nausea. absent: Diarrhea, Vomiting Genitourinary Male: absent: Dysuria, Frequency, Hematuria Musculoskeletal: absent: Arthralgias, Back Pain, Neck Pain Skin: absent: Rash, Pruritis, Skin Lesions Neurological: absent: Headache, Dizziness <Jillian Tobin PA-C - Last Filed: 09/04/18 00:09> Physical Exam Vital Signs Temp Pulse Resp BP Pulse Ox 09/03/18 21:39 89 24 143/85 96 09/03/18 20:02 97.4 F L 89 18 132/91 H 97 <Jame Heredia - Last Filed: 09/03/18 22:52> Vital Signs Temp Pulse Resp BP Pulse Ox 09/03/18 20:02 97.4 F L 89 18 132/91 H 97 Temperature: Afebrile Blood Pressure: Normal Pulse: Regular Respiratory Rate: Normal Appearance: Positive for: Well-Appearing, Non-Toxic, Comfortable Pain Distress: Moderate Mental Status: Positive for: Alert and Oriented X 3 - Systems Exam Head: Present: Atraumatic, Normocephalic Pupils: Present: PERRL Extroacular Muscles: Present: EOMI Conjunctiva: Present: Normal Mouth: Present: Moist Mucous Membranes Neck: Present: Normal Range of Motion Respiratory/Chest: Present: Clear to Auscultation, Good Air Exchange. No: Respiratory Distress, Accessory Muscle Use Cardiovascular: Present: Regular Rate and Rhythm, Normal S1, S2. No: Murmurs Abdomen: Present: Tenderness (+LLQ tenderness). No: Distention, Peritoneal Signs, Rebound, Guarding Back: Present: Normal Inspection. No: CVA Tenderness, Midline Tenderness Upper Extremity: Present: Normal Inspection. No: Cyanosis, Edema Lower Extremity: Present: Normal Inspection. No: Edema Neurological: Present: GCS=15, CN II-XII Intact, Speech Normal, Motor Func Grossly Intact, Normal Sensory Function Skin: Present: Warm, Dry, Normal Color. No: Rashes Psychiatric: Present: Alert, Oriented x 3, Normal Insight, Normal Concentration <Jillian Tobin PA-C - Last Filed: 09/04/18 00:09> Medical Decision Making - Lab Interpretations Lab Results: PT 11.5 SECONDS (9.4-12.5) 09/03/18 20:30 INR 1.04 09/03/18 20:30 APTT 43.0 Seconds (26.9-38.3) H 09/03/18 20:30 Total Bilirubin 0.9 mg/dL (0.2-1.3) 09/03/18 20:30 AST 27 U/L (17-59) 09/03/18 20:30 ALT 40 U/L (7-56) 09/03/18 20:30 Alkaline Phosphatase 126 U/L (38-126) 09/03/18 20:30 Total Protein 7.4 g/dL (5.8-8.3) 09/03/18 20:30 Albumin 4.2 g/dL (3.0-4.8) 09/03/18 20:30 Globulin 3.2 gm/dL 09/03/18 20:30 Albumin/Globulin Ratio 1.3 (1.1-1.8) 09/03/18 20:30 Urine Color Light yellow (YELLOW) 09/03/18 22:00 Urine Appearance Clear (CLEAR) 09/03/18 22:00 Urine pH 7.0 (4.7-8.0) 09/03/18 22:00 Ur Specific [place] 1.020 (1.005-1.035) 09/03/18 22:00 Urine Protein 30 mg/dL (<30 mg/dL) H 09/03/18 22:00 Urine Glucose (UA) Negative mg/dL (NEGATIVE) 09/03/18 22:00 Urine Ketones Negative mg/dL (NEGATIVE) 09/03/18 22:00 Urine Blood Large (NEGATIVE) H 09/03/18 22:00 Urine Nitrate Negative (NEGATIVE) 09/03/18 22:00 Urine Bilirubin Negative (NEGATIVE) 09/03/18 22:00 Urine Urobilinogen 0.2 E.U./dL (<1 E.U./dL) 09/03/18 22:00 Ur Leukocyte Esterase Negative Samira/uL (NEGATIVE) 09/03/18 22:00 Urine RBC 10 - 15 /hpf (0-2) H 09/03/18 22:00 Urine WBC None /hpf (0-6) 09/03/18 22:00 Ur Epithelial Cells None /hpf (0-5) 09/03/18 22:00 - RAD Interpretation Radiology Orders: 09/03/18 20:14 ABD & PELVIS W/O PO OR IV CONT [CT] Stat - Medication Orders Current Medication Orders: Discontinued Medications Sodium Chloride (Sodium Chloride 0.9%) 1,000 mls @ 1,000 mls/hr IV .Q1H STA Stop: 09/03/18 21:13 Last Admin: 09/03/18 20:47 Dose: 1,000 mls/hr eMAR Start Stop Document 09/03/18 20:47 CNR (Rec: 09/03/18 20:48 CNR [id number]) Intravenous Solution Start Date 09/03/18 Start Time 20:48 End Date 09/03/18 End time 21:48 Total Infusion Time 60 Ketorolac Tromethamine (Toradol) 30 mg IVP STAT STA Stop: 09/03/18 20:15 Last Admin: 09/03/18 20:48 Dose: 30 mg MAR Pain Assessment Document 09/03/18 20:48 CNR (Rec: 09/03/18 20:48 CNR [id number]) Pain Reassessment Is this a pain reassessment? No IVP Administration Document 09/03/18 20:48 CNR (Rec: 09/03/18 20:48 CNR [id number]) Charges for Administration # of IVP Administrations 1 Ondansetron HCl (Zofran Inj) 4 mg IVP STAT STA Stop: 09/03/18 20:15 Last Admin: 09/03/18 20:48 Dose: 4 mg IVP Administration Document 09/03/18 20:48 CNR (Rec: 09/03/18 20:48 CNR [id number]) Charges for Administration # of IVP Administrations 1 <Jame Heredia - Last Filed: 09/03/18 22:52> ED Course and Treatment: 09/03/18 20:19 Plan : - IV - Labs - UA, urine cx - Zofran / Toradol - Reassess / disposition - CT A/P w/o contrast Labs reviewed. CT A/P pending. On reevaluation, patient reports improvement of symptoms, denies any nausea, has no other complaints. On exam, patient remains awake alert and oriented 3 in no acute distress. 09/03/18 23:00 CT Abdomen and Pelvis without IV contrast CLINICAL HISTORY: Left flank pain TECHNIQUE: Axial computed tomography images of the abdomen and pelvis without intravenous contrast. 663.10 mGy-cm CONTRAST: Without COMPARISON: None provided. FINDINGS: LUNG BASES: The lung bases appear clear. No pleural effusions are seen. LIVER: Mild hepatomegaly. The liver measured 16.8 cm in the midclavicular line. GALLBLADDER AND BILE DUCTS: The gallbladder appears within normal limits. No radioopaque gallstones are seen. No biliary ductal dilatation is evident. PANCREAS: Unremarkable. SPLEEN: Unremarkable. ADRENAL GLANDS: Unremarkable. KIDNEYS, URETERS, AND BLADDER: Both kidneys are normal in size and position. A punctate non-obstructing calculus is seen in the anteromedial upper right renal pole. An 8.3 mm non- obstructing calculus is seen in the lower right renal pole. There is a punctate non-obstructing calculus seen within the lower left renal pole. A 4.3 mm obstructing distal left ureteric calculus is identified approximately 1.5 cm proximal to the left UVJ. This creates associated continuous left hydroureter and marked left hydronephrosis. Associated left perinephric stranding is also present. The urinary bladder appeared normal in size and configuration. STOMACH AND BOWEL: Unremarkable appearance of the stomach and bowel. No evidence of bowel obstruction. No evidence suggesting enteritis or colitis. APPENDIX: No evidence of acute appendicitis on CT examination. PERITONEUM: No free fluid. No free air. LYMPH NODES: No lymphadenopathy is evident. REPRODUCTIVE: The seminal vesicles appeared normal and symmetrical in size. There is mild prostatic hypertrophy. The prostate gland measured 5.2 cm transversely. Benign-appearing central zone calcifications are noted. VASCULATURE: No evidence of abdominal aortic aneurysm. BONES: No aggressive appearing osseous lesion. No acute osseous pathology evident. IMPRESSION: 1. 4.3 mm obstructing distal left ureteric calculus. Associated continuous left hydroureter and marked left hydronephrosis. 2. Bilateral non--obstructing renal calculi as described above. 3. Mild hepatomegaly. 4. Mild prostatic hypertrophy. 09/03/18 23:00 Case d/w Dr. Santana, request patient to stay for observation under the medical service and he plans to place a stent. Case d/w Dr. Moore and the medical assistant internal medicine, agrees with plan for obs under the hospitalist. - RAD Interpretation Radiology Orders: 09/03/18 20:14 ABD & PELVIS W/O PO OR IV CONT [CT] Stat - Medication Orders Current Medication Orders: Sodium Chloride (Sodium Chloride 0.9%) 1,000 mls @ 1,000 mls/hr IV .Q1H STA Stop: 09/03/18 21:13 Discontinued Medications Ketorolac Tromethamine (Toradol) 30 mg IVP STAT STA Stop: 09/03/18 20:15 Ondansetron HCl (Zofran Inj) 4 mg IVP STAT STA Stop: 09/03/18 20:15 <Jillian Tobin PA-C - Last Filed: 09/04/18 00:09> - PA / [employer] INCIDENT RESPONDER / Resident Statement BILL has reviewed & agrees with the documentation as recorded. <Jame Heredia - Last Filed: 09/03/18 22:52> - PA / [employer] INCIDENT RESPONDER / Resident Statement BILL has reviewed & agrees with the documentation as recorded. <Jillian Tobin PA-C - Last Filed: 09/04/18 00:09> Disposition/Present on Arrival <Jame Heredia - Last Filed: 09/03/18 22:52> - Present on Arrival Any Indicators Present on Arrival: No History of DVT/PE: No History of Uncontrolled Diabetes: No Urinary Catheter: No History of Decub. Ulcer: No History Surgical Site Infection Following: None - Disposition Have Diagnosis and Disposition been Completed?: Yes Disposition Time: 23:00 Patient Plan: Observation <Jillian Tobin PA-C - Last Filed: 09/04/18 00:09> - Disposition Diagnosis: Renal colic, Hydronephrosis Disposition: HOSPITALIZED Condition: STABLE Forms: [employer] (Pashto)
[2018-09-03 21:04] LABS: BASO # 0.09 K/mm3 (0.0-2.0); BASO % 0.8 % (0.0-3.0); EOS # 0.2 (0.0-0.7); EOS % 1.6 % (1.5-5.0); HEMOGLOBIN 14.5 g/dL (14.0-18.0); LYMPH # 1.9 (1.2-3.4); LYMPH % 16.9 % (22.0-35.0); MEAN CORPUSCULAR HGB CONC 34.9 g/dl (31.0-37.0); MEAN PLATELET VOLUME 10.4 fl (7.0-11.0); MONO # 0.8 (0.1-0.6); MONO % 6.9 % (1.0-6.0); RBC 4.84 10^6/uL (3.5-6.1); RED CELL DISTRIBUTION WIDTH 12.6 % (11.5-14.5); WHITE BLOOD COUNT 11.4 10^3/uL (4.5-11.0)
[2018-09-03 21:09] LABS: ALB/GLOB RATIO 1.3 (1.1-1.8); ALBUMIN 4.2 g/dL (3.0-4.8); ALT/SGPT 40 U/L (7-56); AST/SGOT 27 U/L (17-59); BLOOD UREA NITROGEN 21 mg/dL (7-21); CALCIUM 9.5 mg/dL (8.4-10.5); GFR NON-AFRICAN AMERICAN > 60; INR 1.04; PROTHROMBIN TIME 11.5 SECONDS (9.4-12.5)
[2018-09-03 22:15] LABS: URINE APPEARANCE CLEAR (CLEAR); URINE BILIRUBIN NEGATIVE (NEGATIVE); URINE BLOOD LARGE (NEGATIVE); URINE COLOR LIGHT YELLOW (YELLOW); URINE GLUCOSE (UA) NEGATIVE (NEGATIVE); URINE LEUKOCYTE ESTERASE NEGATIVE Leu/uL (NEGATIVE); URINE PROTEIN 30 mg/dL (<30 mg/dL); URINE UROBILINOGEN 0.2 E.U./dL (<1 E.U./dL)
[2018-09-03] MEDS ORDERED: Morphine 2 mg/ml ISec IVP PRN (23:32)
[2018-09-03] MEDS: Sodium Chloride 0.9% 1,000 ML IV SCH (23:54)
[2018-09-03] MEDS: Morphine 2 mg/ml ISec IVP SCH (23:55)
--- NOTE | 2018-09-04 00:31 | CP.PCM.HP ---
<EddCruzito - Last Filed: 09/04/18 21:01> History of Present Illness - History of Present Illness History of Present Illness: Dr Puga [facility] Hospitalist Service 48M pmhx of urolithiasis, hydronephrosis, presents with L flank pain radiating to the groin for one week. The pain went away, then at around 5pm this past afternoon he got a sudden sharp stabbing pain in his Left side of his back and it radiated down into the left testicle. He immediately came to [facility] for evaluation. He has had many episodes of renal colic in the past and says this feels the same in nature as the previous ones. Pt reports having cyclic pain from his recurrent kidney stones over the last 5 years, he states however that since two years ago his symptoms have improved significantly and he has not had kidney stone pain as frequently as before. PT reports he began to see blood tinge in his urine intermittently over the last 6 moths, and has not followed up in office with Dr Santana. ROS: Pos- L back pain, L testicular pain, blood in urine, hx of kidney stones, hx of renal stents Neg- CP, SOB, FC, NV, testicular swelling, abdominal pain, dysuria, urinary freq PMH urolithiasis, hydronephrosis, PSH renal stents w/ lithotripsy and cystoscopy x6 since , most recent 06/2015 SH Light Smoker < 10 Cigarettes Daily, 10ppy, admits to marijuana use, budget assistant All cats, pollen Home Med percocet 5/325 nexium 40 allergy pills? PMD Dr. Araceli Butt Urologist Dr. Santana Present on Admission - Present on Admission Any Indicators Present on Admission: No Review of Systems - Review of Systems All systems: reviewed and no additional remarkable complaints except (as per HPI) Past Patient History - Infectious Disease Hx of Infectious Diseases: None - Tetanus Immunizations Tetanus Immunization: Up to Date - Past Social History Smoking Status: Light Smoker < 10 Cigarettes Daily - CARDIAC Hx Cardiac Disorders: No - PULMONARY Hx Respiratory Disorders: Yes Hx Bronchitis: Yes - NEUROLOGICAL Hx Neurological Disorder: No - HEENT Hx HEENT Problems: No - RENAL Hx Chronic Kidney Disease: Yes Hx Kidney Stones: Yes (STENT) - ENDOCRINE/METABOLIC Hx Endocrine Disorders: No - HEMATOLOGICAL/ONCOLOGICAL Hx Blood Disorders: No - INTEGUMENTARY Hx Dermatological Problems: Yes Other/Comment: ABSCESS - MUSCULOSKELETAL/RHEUMATOLOGICAL Hx Musculoskeletal Disorders: Yes Hx Back Pain: Yes - GASTROINTESTINAL Hx Gastrointestinal Disorders: Yes Hx Gastroesophageal Reflux: Yes - GENITOURINARY/GYNECOLOGICAL Hx Genitourinary Disorders: Yes Other/Comment: URINE RETENTION - PSYCHIATRIC Hx Psychophysiologic Disorder: Yes Hx Depression: Yes Hx Substance Use: Yes (CANNABIS) - SURGICAL HISTORY Other/Comment: kidney stent - ANESTHESIA Hx Anesthesia: Yes Hx Anesthesia Reactions: No Hx Malignant Hyperthermia: No Meds Allergies/Adverse Reactions: Allergies Allergy/AdvReac Type Severity Reaction Status Date / Time cats Allergy Intermediate RASH Uncoded 09/03/18 19:59 polen Allergy Intermediate RASH Uncoded 09/03/18 19:59 Physical Exam - Constitutional Appears: Non-toxic, In Acute Distress, Older Than Stated Age - Head Exam Head Exam: NORMAL INSPECTION - Eye Exam Eye Exam: EOMI, Normal appearance. absent: Scleral icterus Pupil Exam: NORMAL ACCOMODATION, PERRL - ENT Exam ENT Exam: Mucous Membranes Moist Additional comments: cleft palate - Neck Exam Neck exam: Positive for: Normal Inspection - Respiratory Exam Respiratory Exam: Clear to Auscultation Bilateral, NORMAL BREATHING PATTERN. absent: Rales, Wheezes - Cardiovascular Exam Cardiovascular Exam: RRR, +S1, +S2 - GI/Abdominal Exam GI & Abdominal Exam: Firm. absent: Guarding, Rebound, Rigid - Exam Exam: absent: Scrotal Swelling, Testicular Tenderness - Back Exam Back exam: CVA tenderness (L). absent: CVA tenderness (R), rash noted, vertebral tenderness - Neurological Exam Neurological exam: Alert, CN II-XII Intact, Oriented x3 - Psychiatric Exam Psychiatric exam: Normal Affect, Normal Mood - Skin Skin Exam: Dry, Intact, Normal Color, Warm Results - Vital Signs Recent Vital Signs: Last Vital Signs Temp 97.4 F L 09/03/18 20:02 Pulse 95 H 09/04/18 00:01 Resp 18 09/04/18 00:01 BP 124/81 09/04/18 00:01 Pulse Ox 95 09/04/18 00:01 - Labs Result Diagrams: 09/03/18 20:30 09/03/18 20:30 Labs: Laboratory Results - last 24 hr 09/03/18 09/03/18 09/03/18 20:30 20:30 20:30 WBC 11.4 H RBC 4.84 Hgb 14.5 Hct 41.6 L MCV 86.0 MCH 30.0 MCHC 34.9 RDW 12.6 Plt Count 246 MPV 10.4 Neut % (Auto) 73.8 H Lymph % (Auto) 16.9 L [place] % (Auto) 6.9 H Eos % (Auto) 1.6 Baso % (Auto) 0.8 Lymph # (Auto) 1.9 [place] # (Auto) 0.8 H Eos # (Auto) 0.2 Baso # (Auto) 0.09 Absolute Neuts (auto) 8.42 H PT 11.5 INR 1.04 APTT 43.0 H Sodium 142 Potassium 3.9 Chloride 107 Carbon Dioxide 26 Anion Gap 13 BUN 21 Creatinine 1.1 Est GFR ( Amer) > 60 Est GFR (Non-Af Amer) > 60 Random Glucose 121 H Calcium 9.5 Total Bilirubin 0.9 AST 27 ALT 40 Alkaline Phosphatase 126 Total Protein 7.4 Albumin 4.2 Globulin 3.2 Albumin/Globulin Ratio 1.3 Urine Color Urine Appearance Urine pH Ur Specific Exchange Urine Protein Urine Glucose (UA) Urine Ketones Urine Blood Urine Nitrate Urine Bilirubin Urine Urobilinogen Ur Leukocyte Esterase Urine RBC Urine WBC Ur Epithelial Cells 09/03/18 22:00 WBC RBC Hgb Hct MCV MCH MCHC RDW Plt Count MPV Neut % (Auto) Lymph % (Auto) [place] % (Auto) Eos % (Auto) Baso % (Auto) Lymph # (Auto) [place] # (Auto) Eos # (Auto) Baso # (Auto) Absolute Neuts (auto) PT INR APTT Sodium Potassium Chloride Carbon Dioxide Anion Gap BUN Creatinine Est GFR ( Amer) Est GFR (Non-Af Amer) Random Glucose Calcium Total Bilirubin AST ALT Alkaline Phosphatase Total Protein Albumin Globulin Albumin/Globulin Ratio Urine Color Light yellow Urine Appearance Clear Urine pH 7.0 Ur Specific Exchange 1.020 Urine Protein 30 H Urine Glucose (UA) Negative Urine Ketones Negative Urine Blood Large H Urine Nitrate Negative Urine Bilirubin Negative Urine Urobilinogen 0.2 Ur Leukocyte Esterase Negative Urine RBC 10 - 15 H Urine WBC None Ur Epithelial Cells None Assessment & Plan - Assessment and Plan (Free Text) Assessment: 48m with extensive hx of urolithiasis admitted for observation, to get stent w/ Dr Santana Urology in AM Plan: Recurent Obstructive Urolithiasis- L Kidney -Dr Santana Urology Consulted stent Tmrw AM -CT abd pelv: f/u official read -Morphine 2 q4 prn IVP -NS @ 100 -Flomax 0.4 daily -monitor I&Os Hx of Hypronephrosis -f/u offical CT abd/pelv read -monitor I&Os -cr1.1: minor elevation from baseline of 0.7: monitor for signs of obstructive uropathy -NS@ 100 Leukocytosis w/ Left Shift -Possible UTI: f/u UC -Rocephin 1g daily IVPB -f/u am labs Hx of Polysubstance Abuse -f/u UDS -monitor for signs of withdrawls Hx of GERD PTX 40 iv daily PPx -NPO past midnight -PTX -hold anti coag for procedure CK PGY1 <Tito Moore - Last Filed: 09/05/18 19:15> Results - Vital Signs Recent Vital Signs: Last Vital Signs Temp 98 F 09/04/18 16:44 Pulse 54 L 09/04/18 16:44 Resp 12 09/04/18 16:44 BP 119/79 09/04/18 16:44 Pulse Ox 99 09/04/18 16:44 - Labs Result Diagrams: 09/04/18 06:45 09/04/18 06:45 Attending/Attestation - Attestation I have personally seen and examined this patient.: Yes I have fully participated in the care of the patient.: Yes I have reviewed all pertinent clinical information: Yes Notes (Text): 09/05/18 19:15 seen and examined. C/O left flank pain. A&P as above.
[2018-09-04 02:40] LABS: BARBITURATES, UR NEGATIVE (NEGATIVE); BENZODIAZEPINES, UR NEGATIVE (NEGATIVE); OPIATES, UR NEGATIVE (NEGATIVE); PHENCYCLIDINE, UR NEGATIVE (NEGATIVE)
[2018-09-04] MEDS: Morphine 2 mg/ml ISec IVP SCH ×2 (03:13→08:49)
[2018-09-04 04:07] LABS: CALCIUM,RANDOM URINE 2.5 mg/dL
[2018-09-04] MEDS ORDERED: Morphine 2 mg/ml ISec IVP STA (06:32)
[2018-09-04 07:15] LABS: BASO # 0.05 K/mm3 (0.0-2.0); BASO % 0.6 % (0.0-3.0); EOS # 0.3 (0.0-0.7); EOS % 3.4 % (1.5-5.0); LYMPH # 2.6 (1.2-3.4); LYMPH % 29.3 % (22.0-35.0); MEAN CELL VOLUME 86.9 fl (80.0-105.0); MEAN CORPUSCULAR HGB CONC 33.3 g/dl (31.0-37.0); MEAN PLATELET VOLUME 10.2 fl (7.0-11.0); MONO # 0.6 (0.1-0.6); MONO % 6.7 % (1.0-6.0); RBC 4.49 10^6/uL (3.5-6.1); RED CELL DISTRIBUTION WIDTH 12.8 % (11.5-14.5); WHITE BLOOD COUNT 8.9 10^3/uL (4.5-11.0)
[2018-09-04 08:05] LABS: ALB/GLOB RATIO 1.3 (1.1-1.8); ALBUMIN 3.4 g/dL (3.0-4.8); ALT/SGPT 33 U/L (7-56); AST/SGOT 24 U/L (17-59); BLOOD UREA NITROGEN 17 mg/dL (7-21); CALCIUM 8.5 mg/dL (8.4-10.5); GFR NON-AFRICAN AMERICAN > 60
--- NOTE | 2018-09-04 08:47 | CT ---
Date of service: 09/03/2018 PROCEDURE: CT Abdomen and Pelvis without intravenous contrast HISTORY: L flank pain COMPARISON: None. TECHNIQUE: Without contrast.. Contrast dose: Radiation dose: Total exam DLP = 663.1 mGy-cm. This CT exam was performed using one or more of the following dose reduction techniques: Automated exposure control, adjustment of the mA and/or kV according to patient size, and/or use of iterative reconstruction technique. FINDINGS: LOWER THORAX: Unremarkable. LIVER: Unremarkable. No gross lesion or ductal dilatation. GALLBLADDER AND BILE DUCTS: Unremarkable. PANCREAS: Unremarkable. No gross lesion or ductal dilatation. SPLEEN: Unremarkable. ADRENALS: Unremarkable. No mass. KIDNEYS AND URETERS: There is a 4 mm stone in the distal left ureter with hydronephrosis and perinephric stranding. There is a 7 mm stone in the lower pole of the right kidney. VASCULATURE: Unremarkable. No aortic aneurysm. No aortic atherosclerotic calcification or mural plaque present. BOWEL: Unremarkable. No obstruction. No gross mural thickening. APPENDIX: Unremarkable. Normal appendix. PERITONEUM: Unremarkable. No free fluid. No free air. LYMPH NODES: Unremarkable. No enlarged lymph nodes. BLADDER: Unremarkable. REPRODUCTIVE: Unremarkable. BONES: No acute fracture. OTHER FINDINGS: The report concurs with the preliminary [facility] report IMPRESSION: There is a 4 mm stone in the distal left ureter with hydronephrosis and perinephric stranding. There is a 7 mm stone in the lower pole of the right kidney.
--- NOTE | 2018-09-04 09:41 | CP.PCM.PN ---
Objective - Vital Signs/Intake and Output Vital Signs (last 24 hours): Temp Pulse Resp BP Pulse Ox 98.1 F 73 20 106/56 L 96 09/04/18 07:47 09/04/18 07:47 09/04/18 07:47 09/04/18 07:47 09/04/18 07:47 - Medications Medications: Current Medications Sodium Chloride (Sodium Chloride 0.9%) 1,000 mls @ 100 mls/hr IV .Q10H CJ Last Admin: 09/03/18 23:54 Dose: 100 mls/hr Ceftriaxone Sodium (Rocephin 1 Gram Ivpb) 1 gm in 100 mls @ 100 mls/hr IVPB DAILY CJ; Protocol Morphine Sulfate (Morphine) 2 mg IVP Q4 CJ Last Admin: 09/04/18 08:49 Dose: 2 mg Pantoprazole Sodium (Protonix Inj) 40 mg IVP DAILY COUNTS INCLUDE 234 BEDS AT THE [facility] Tamsulosin HCl (Flomax) 0.4 mg PO DAILY CJ - Labs Labs: 09/04/18 06:45 09/04/18 06:45 PT 11.5 SECONDS (9.4-12.5) 09/03/18 20:30 INR 1.04 09/03/18 20:30 APTT 43.0 Seconds (26.9-38.3) H 09/03/18 20:30
[2018-09-04] MEDS ORDERED: cefTRIAXone 1 gm 1 GM/100 ML BAG IVPB SCH (10:00)
[2018-09-04] MEDS: Sodium Chloride 0.9% 1,000 ML IV SCH (10:50)
[2018-09-04] MEDS ORDERED: Morphine 2 mg/ml ISec IVP PRN (11:06)
[2018-09-04] MEDS ORDERED: Propofol 10 mg/ml Inj (20 ML) ONE (14:53)
[2018-09-04] MEDS ORDERED: Iohexol 240 (50 ml) ONE (14:59)
[2018-09-04] MEDS ORDERED: cefTRIAXone (Rocephin) 1 gm Inj ONE (15:04)
[2018-09-04] MEDS ORDERED: cefTRIAXone 1 GM in NS 100 ML BAG IVPB ONE (15:20)
[2018-09-04] MEDS ORDERED: HYDROmorphone 0.5 mg/0.5 ml ISec IVP PRN (16:04)
[2018-09-04 16:07] VITALS: RESP 12; TEMP 98
[2018-09-04] MEDS ORDERED: Lactated Ringer's 1,000 ML IV SCH (16:15)
[2018-09-04 16:31] VITALS: PULSE 54; O2SAT 99
[2018-09-04 16:47] VITALS: BP 119/79
--- NOTE | 2018-09-04 17:35 | CP.PCM.DIS ---
<Krish Gore - Last Filed: 09/05/18 14:13> Provider - Provider Date of Admission: 09/04/18 00:10 Attending physician: Braydon Garcia MD Consults: 09/03/18 23:40 Physician Consult Stat Comment: Consulting Provider: Laron Santana Consulting Physician: Laron Santana Reason for Consult: obstructing uretal stone Time Spent in preparation of Discharge (in minutes): 45 Diagnosis - Discharge Diagnosis (1) Hydronephrosis concurrent with and due to calculi of kidney and ureter Status: Acute (2) S/P ureteral stent placement Status: Acute Hospital Course - Lab Results Lab Results: Most Recent Lab Values WBC 8.9 10^3/uL (4.5-11.0) D 09/04/18 06:45 RBC 4.49 10^6/uL (3.5-6.1) 09/04/18 06:45 Hgb 13.0 g/dL (14.0-18.0) L 09/04/18 06:45 Hct 39.0 % (42.0-52.0) L 09/04/18 06:45 MCV 86.9 fl (80.0-105.0) 09/04/18 06:45 MCH 29.0 pg (25.0-35.0) 09/04/18 06:45 MCHC 33.3 g/dl (31.0-37.0) 09/04/18 06:45 RDW 12.8 % (11.5-14.5) 09/04/18 06:45 Plt Count 205 10^3/uL (120.0-450.0) 09/04/18 06:45 MPV 10.2 fl (7.0-11.0) 09/04/18 06:45 Neut % (Auto) 60.0 % (50.0-68.0) 09/04/18 06:45 Lymph % (Auto) 29.3 % (22.0-35.0) 09/04/18 06:45 [place] % (Auto) 6.7 % (1.0-6.0) H 09/04/18 06:45 Eos % (Auto) 3.4 % (1.5-5.0) 09/04/18 06:45 Baso % (Auto) 0.6 % (0.0-3.0) 09/04/18 06:45 Lymph # (Auto) 2.6 (1.2-3.4) 09/04/18 06:45 [place] # (Auto) 0.6 (0.1-0.6) 09/04/18 06:45 Eos # (Auto) 0.3 (0.0-0.7) 09/04/18 06:45 Baso # (Auto) 0.05 K/mm3 (0.0-2.0) 09/04/18 06:45 Absolute Neuts (auto) 5.32 (1.4-6.5) 09/04/18 06:45 PT 11.5 SECONDS (9.4-12.5) 09/03/18 20:30 INR 1.04 09/03/18 20:30 APTT 43.0 Seconds (26.9-38.3) H 09/03/18 20:30 Sodium 140 mmol/L (132-148) 09/04/18 06:45 Potassium 3.6 mmol/L (3.6-5.0) 09/04/18 06:45 Chloride 110 mmol/L (98-107) H 09/04/18 06:45 Carbon Dioxide 24 mmol/L (21-33) 09/04/18 06:45 Anion Gap 10 (10-20) 09/04/18 06:45 BUN 17 mg/dL (7-21) 09/04/18 06:45 Creatinine 0.8 mg/dl (0.8-1.5) 09/04/18 06:45 Est GFR ( Amer) > 60 09/04/18 06:45 Est GFR (Non-Af Amer) > 60 09/04/18 06:45 Random Glucose 95 mg/dL (70-110) 09/04/18 06:45 Calcium 8.5 mg/dL (8.4-10.5) 09/04/18 06:45 Total Bilirubin 1.2 mg/dL (0.2-1.3) 09/04/18 06:45 AST 24 U/L (17-59) 09/04/18 06:45 ALT 33 U/L (7-56) 09/04/18 06:45 Alkaline Phosphatase 97 U/L (38-126) 09/04/18 06:45 Total Protein 6.1 g/dL (5.8-8.3) 09/04/18 06:45 Albumin 3.4 g/dL (3.0-4.8) 09/04/18 06:45 Globulin 2.6 gm/dL 09/04/18 06:45 Albumin/Globulin Ratio 1.3 (1.1-1.8) 09/04/18 06:45 Homocysteine 7.8 umol/L (6.6-14.8) 09/04/18 06:45 Urine Color Light yellow (YELLOW) 09/03/18 22:00 Urine Appearance Clear (CLEAR) 09/03/18 22:00 Urine pH 7.0 (4.7-8.0) 09/03/18 22:00 Ur Specific [place] 1.020 (1.005-1.035) 09/03/18 22:00 Urine Protein 30 mg/dL (<30 mg/dL) H 09/03/18 22:00 Urine Glucose (UA) Negative mg/dL (NEGATIVE) 09/03/18 22:00 Urine Ketones Negative mg/dL (NEGATIVE) 09/03/18 22:00 Urine Blood Large (NEGATIVE) H 09/03/18 22:00 Urine Nitrate Negative (NEGATIVE) 09/03/18 22:00 Urine Bilirubin Negative (NEGATIVE) 09/03/18 22:00 Urine Urobilinogen 0.2 E.U./dL (<1 E.U./dL) 09/03/18 22:00 Ur Leukocyte Esterase Negative Samira/uL (NEGATIVE) 09/03/18 22:00 Urine RBC 10 - 15 /hpf (0-2) H 09/03/18 22:00 Urine WBC None /hpf (0-6) 09/03/18 22:00 Ur Epithelial Cells None /hpf (0-5) 09/03/18 22:00 Ur Random Calcium 2.5 mg/dL 09/04/18 01:45 Urine Opiates Screen Negative (NEGATIVE) 09/04/18 01:45 Urine Methadone Screen Negative (NEGATIVE) 09/04/18 01:45 Ur Barbiturates Screen Negative (NEGATIVE) 09/04/18 01:45 Ur Phencyclidine Scrn Negative (NEGATIVE) 09/04/18 01:45 Ur Amphetamines Screen Negative (NEGATIVE) 09/04/18 01:45 U Benzodiazepines Scrn Negative (NEGATIVE) 09/04/18 01:45 U Oth Cocaine Metabols Negative (NEGATIVE) 09/04/18 01:45 U Cannabinoids Screen Positive (NEGATIVE) H 09/04/18 01:45 - Hospital Course Hospital Course: Krish Gore DO PGY1 - Internal Medicine Manifold Operator - Hospitalist DC Summary: Upon presentation 48M pmhx of urolithiasis, hydronephrosis, presents with L flank pain radiating to the groin for one week. The pain went away, then at around 5pm this past afternoon he got a sudden sharp stabbing pain in his Left side of his back and it radiated down into the left testicle. He immediately came to [facility] [place] for evaluation. He has had many episodes of renal colic in the past and says this feels the same in nature as the previous ones. Pt reports having cyclic pain from his recurrent kidney stones over the last 5 years, he states however that since two years ago his symptoms have improved significantly and he has not had kidney stone pain as frequently as before. PT reports he began to see blood tinge in his urine intermittently over the last 6 moths, and has not followed up in office with Dr Santana. During hospital course: Patient was monitored overnight on IVF and IV ABX; Patient remained afebrile w/o leukocytosis; analgesia offered to patient. Underwent cystoscopy w/ left retrograde pyelogram and insertion of stent into the left ureter w/ Dr. Santana on 04 PM After stent placement patient was seen and evaluated, Patient reported no fevers, chills, shortness of breath, abd pain, n/v/d/c, Passing urine w/o issue or difficulty OK for discharge post procedure as per Dr. Santana Discharge medications, and discharge plans were reviewed with patient Patient verbalized understanding of discharge plan as written below Patient was seen, evaluated, and discussed w/ attending physician Dr. Garcia prior to discharge - Date & Time of H&P Date of H&P: 09/04/18 Time of H&P: 00:27 Discharge Exam - Head Exam Head Exam: NORMAL INSPECTION - Eye Exam Eye Exam: EOMI, PERRL - Respiratory Exam Respiratory Exam: Clear to PA & Lateral, UNREMARKABLE - GI/Abdominal Exam GI & Abdominal Exam: Normal Bowel Sounds, Unremarkable - Back Exam Back exam: CVA tenderness (L). absent: CVA tenderness (R) - Neurological Exam Neurological exam: Alert, CN II-XII Intact, Oriented x3 - Psychiatric Exam Psychiatric exam: Normal Affect, Normal Mood - Skin Skin Exam: Dry, Intact, Normal Color, Warm Discharge Plan - Discharge Medications Prescriptions: Ciprofloxacin HCl [Cipro] 500 mg PO BID 5 Days #10 tablet - Follow Up Plan Condition: STABLE Disposition: HOME/ ROUTINE Instructions: Kidney Stones (DC), Hydronephrosis, Adult (DC), Ureteral Stent (DC) Additional Instructions: You were admitted for kidney stones, Dr. Santana placed a stent in your left ureter Please follow up with your PMD, Dr. Butt within 3-5 days of discharge Please follow up with your urologist Dr. Santana within 3-5 days of discharge Please start taking antibiotic: Ciprofloxacin 500mg twice a day for a total of 5 days please take ALL of the antibiotics; do not stop even if you are feeling better Please continue taking your home medications as previously prescribed If you begin experience fevers/chills, pain with urination, or other concerning symptoms, please go to the nearest emergency department immediately. Referrals: Araceli Butt DO [Family Provider] - Laron Santana MD [Staff Provider] - <Braydon Garcia - Last Filed: 09/05/18 15:28> Provider - Provider Date of Admission: 09/04/18 00:10 Attending physician: Braydon Garcia MD Consults: 09/03/18 23:40 Physician Consult Stat Comment: Consulting Provider: Laron Santana Consulting Physician: Laron Santana Reason for Consult: obstructing uretal stone Hospital Course - Lab Results Lab Results: Micro Results 09/03/18 22:10 Urine,Clean Catch Urine Culture - Final No Growth (<1,000 CFU/ML) Most Recent Lab Values WBC 8.9 10^3/uL (4.5-11.0) D 09/04/18 06:45 RBC 4.49 10^6/uL (3.5-6.1) 09/04/18 06:45 Hgb 13.0 g/dL (14.0-18.0) L 09/04/18 06:45 Hct 39.0 % (42.0-52.0) L 09/04/18 06:45 MCV 86.9 fl (80.0-105.0) 09/04/18 06:45 MCH 29.0 pg (25.0-35.0) 09/04/18 06:45 MCHC 33.3 g/dl (31.0-37.0) 09/04/18 06:45 RDW 12.8 % (11.5-14.5) 09/04/18 06:45 Plt Count 205 10^3/uL (120.0-450.0) 09/04/18 06:45 MPV 10.2 fl (7.0-11.0) 09/04/18 06:45 Neut % (Auto) 60.0 % (50.0-68.0) 09/04/18 06:45 Lymph % (Auto) 29.3 % (22.0-35.0) 09/04/18 06:45 [place] % (Auto) 6.7 % (1.0-6.0) H 09/04/18 06:45 Eos % (Auto) 3.4 % (1.5-5.0) 09/04/18 06:45 Baso % (Auto) 0.6 % (0.0-3.0) 09/04/18 06:45 Lymph # (Auto) 2.6 (1.2-3.4) 09/04/18 06:45 [place] # (Auto) 0.6 (0.1-0.6) 09/04/18 06:45 Eos # (Auto) 0.3 (0.0-0.7) 09/04/18 06:45 Baso # (Auto) 0.05 K/mm3 (0.0-2.0) 09/04/18 06:45 Absolute Neuts (auto) 5.32 (1.4-6.5) 09/04/18 06:45 PT 11.5 SECONDS (9.4-12.5) 09/03/18 20:30 INR 1.04 09/03/18 20:30 APTT 43.0 Seconds (26.9-38.3) H 09/03/18 20:30 Sodium 140 mmol/L (132-148) 09/04/18 06:45 Potassium 3.6 mmol/L (3.6-5.0) 09/04/18 06:45 Chloride 110 mmol/L (98-107) H 09/04/18 06:45 Carbon Dioxide 24 mmol/L (21-33) 09/04/18 06:45 Anion Gap 10 (10-20) 09/04/18 06:45 BUN 17 mg/dL (7-21) 09/04/18 06:45 Creatinine 0.8 mg/dl (0.8-1.5) 09/04/18 06:45 Est GFR ( Amer) > 60 09/04/18 06:45 Est GFR (Non-Af Amer) > 60 09/04/18 06:45 Random Glucose 95 mg/dL (70-110) 09/04/18 06:45 Calcium 8.5 mg/dL (8.4-10.5) 09/04/18 06:45 Total Bilirubin 1.2 mg/dL (0.2-1.3) 09/04/18 06:45 AST 24 U/L (17-59) 09/04/18 06:45 ALT 33 U/L (7-56) 09/04/18 06:45 Alkaline Phosphatase 97 U/L (38-126) 09/04/18 06:45 Total Protein 6.1 g/dL (5.8-8.3) 09/04/18 06:45 Albumin 3.4 g/dL (3.0-4.8) 09/04/18 06:45 Globulin 2.6 gm/dL 09/04/18 06:45 Albumin/Globulin Ratio 1.3 (1.1-1.8) 09/04/18 06:45 Homocysteine 7.8 umol/L (6.6-14.8) 09/04/18 06:45 Urine Color Light yellow (YELLOW) 09/03/18 22:00 Urine Appearance Clear (CLEAR) 09/03/18 22:00 Urine pH 7.0 (4.7-8.0) 09/03/18 22:00 Ur Specific [place] 1.020 (1.005-1.035) 09/03/18 22:00 Urine Protein 30 mg/dL (<30 mg/dL) H 09/03/18 22:00 Urine Glucose (UA) Negative mg/dL (NEGATIVE) 09/03/18 22:00 Urine Ketones Negative mg/dL (NEGATIVE) 09/03/18 22:00 Urine Blood Large (NEGATIVE) H 09/03/18 22:00 Urine Nitrate Negative (NEGATIVE) 09/03/18 22:00 Urine Bilirubin Negative (NEGATIVE) 09/03/18 22:00 Urine Urobilinogen 0.2 E.U./dL (<1 E.U./dL) 09/03/18 22:00 Ur Leukocyte Esterase Negative Samira/uL (NEGATIVE) 09/03/18 22:00 Urine RBC 10 - 15 /hpf (0-2) H 09/03/18 22:00 Urine WBC None /hpf (0-6) 09/03/18 22:00 Ur Epithelial Cells None /hpf (0-5) 09/03/18 22:00 Ur Random Calcium 2.5 mg/dL 09/04/18 01:45 Urine Opiates Screen Negative (NEGATIVE) 09/04/18 01:45 Urine Methadone Screen Negative (NEGATIVE) 09/04/18 01:45 Ur Barbiturates Screen Negative (NEGATIVE) 09/04/18 01:45 Ur Phencyclidine Scrn Negative (NEGATIVE) 09/04/18 01:45 Ur Amphetamines Screen Negative (NEGATIVE) 09/04/18 01:45 U Benzodiazepines Scrn Negative (NEGATIVE) 09/04/18 01:45 U Oth Cocaine Metabols Negative (NEGATIVE) 09/04/18 01:45 U Cannabinoids Screen Positive (NEGATIVE) H 09/04/18 01:45 Attending/Attestation - Attestation I have personally seen and examined this patient.: Yes I have fully participated in the care of the patient.: Yes I have reviewed all pertinent clinical information, including history, physical exam and plan: Yes Notes (Text): 09/05/18 15:24 Attending note; Patient seen and examined with resident. Patient is alert and awake. Denies any fevers, chills. complaining of left-sided abdominal pain. Denies any nausea, vomiting. Urine is clean. Currently n.p.o. for ureteral stent placement. Patient is a 48 year old male with pmhx of urolithiasis, hydronephrosis, presents with L flank pain radiating to the groin for one week. 1. Left ureteral stone; left flank pain due to 4 mm distal left ureteral stone with mild hydronephrosis and perinephric stranding. Currently n.p.o.. IV fluids. plan for stent placement today. Case discussed with Dr. Santana in detail. continue IV Rocephin. Addendum; Status post ureteral stent placement. patient is tolerating diet. pain Resolved. Patient will be discharged home with close follow-up with urology. Follow-up with PMD Dr. Butt.
--- NOTE | 2018-09-06 22:29 | RAD ---
Date of service: 09/04/2018 PROCEDURE: Cystogram HISTORY: COMPARISON: TECHNIQUE: 24.3 sec of fluoro time. Cumulative dose 6.52 mGy. Three images were submitted FINDINGS: The study shows placement of a wire and a stent in the left renal collecting system. The bladder is not visualized IMPRESSION: As above
--- NOTE | 2018-09-10 08:39 | PN ---
DATE: 09/04/2018 IMMEDIATE POSTOPERATIVE NOTE See the history and physical, consultation and the Urology operative note. The patient is status post a cystoscopy and a stent placement. Vital signs remain within normal limits. DIAGNOSES: Urolithiasis, hematuria, bilateral stone disease and hydronephrosis particularly on the left. The patient is now status post stent placement. The Urology plan is as follows; outpatient management and then further plans will follow. Mart Sanatna MD
--- NOTE | 2018-09-10 09:03 | CON ---
DATE: 09/04/2018 UROLOGY CONSULTATION REASON FOR CONSULTATION: Severe renal colic. HISTORY OF PRESENT ILLNESS: This patient is a very pleasant 48-year-old gentleman, I have not seen him recently. I previously had treated him for a very heavy stone burden both left and right-sided. He now presents with severe renal colic, unbearable to him. The Urology plan is as follows; we are going to put a stent in immediately. On the left side, he has a 4-mm distal ureteral stone. We discussed the options, see further details and plans below including the possibility that, that stone will pass, previously has passed some stones, but he states this pain is killing him. I am going to plan to put a stent in. He has bilateral stone disease. He may even have another one up in the kidney on the left side. He definitely has got a 9-mm stone on the right side. Most recently I have not been seeing him. He had a history of a heavy stone burden and we treated him, recently off of percutaneous treatment. We had checked labs, but we will need to recheck that including parathyroid hormone, calcium, etc. We have discussed diet and hydration, etc. Past medical and surgical history is otherwise unchanged. He has a history of a cancer . REVIEW OF SYSTEMS: As above, noncontributory. No weight loss, chest pain, or shortness of breath. 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 We have been missing out on [place] for quite some time. On a social note, otherwise no other changes. He has a smoking history. PHYSICAL EXAMINATION GENERAL: A well-nourished male, somewhat appears lesser grimace on his face. VITAL SIGNS: Noted to be within normal limits. LUNGS: Clear. HEART: S1 and S2. ABDOMEN: Overall soft, nontender. No flank mass is appreciated. GENITOURINARY: Normal male phallus. There are no testicular masses. RECTAL: Deferred consistently, but I will mention now he has got a 10 to 20 gram soft prostate. LABORATORY DATA: See chart, they are all on the chart, within relatively normal limits. CT scan noted. Stones noted. Hydronephrosis noted. DIAGNOSES: Urolithiasis, hematuria, severe renal colic, hydronephrosis, and he has bilateral stone disease. PLAN: Today the plan as follows; we are going to bring him to the OR for an immediate emergency cystoscopy and a stent placement. Then, further plans will follow. ADDENDUM: See the operative note. We did a cystoscopy stent insertion for hydronephrosis. Postop, the patient is looking to be discharged home, see the plans per the medical team. From Urology standpoint, we placed the stent today. Thank you for the Urology consult and the addendum noted. Mart Santana MD
--- NOTE | 2018-09-10 12:26 | OP ---
PROCEDURE DATE: 09/04/2018 PREOPERATIVE DIAGNOSES: Bilateral urolithiasis, left hydronephrosis, severe left renal colic, left distal ureteral stone. POSTOPERATIVE DIAGNOSES: Bilateral urolithiasis, left hydronephrosis, severe left renal colic, left distal ureteral stone. PROCEDURE: Cystoscopy, left retrograde pyelogram, insertion of double-J stent. SURGEON: Mart Santana MD COMPLICATIONS: There were no complications. ESTIMATED BLOOD LOSS: Less than 10 mL. At the termination of the procedure that the Double-J stent is in good location. No other drains are noted. There were no complications. INDICATIONS: See the history and physical and consultation. A very pleasant gentleman, he is 48-year-old. See the consultation of the operative note. UROLOGY OPERATIVE FINDINGS: 1. Normal anterior urethra, no strictures. 2. The verumontanum was moderately visually occlusive and normal within the limits for a 48-year-old. 3. There are stones bilaterally. 4. There is a distal urethral stone and the stent is deployed without difficult. There were no complications. Procedure and indication, see history and physical. DESCRIPTION OF PROCEDURE: After obtaining informed consent, the patient was placed on the table. A time-out was called to confirm patient, positioning, etc. The patient is in lithotomy position. We confirmed the patient. Antibiotic prophylaxis was used. Cystoscope via urethra, urethra normal, no strictures. The verumontanum is moderately occlusive, but within normal limits for age. The ureteral orifice identified. A retrograde pyelogram was performed. A left urethral stent was inserted. A wire was passed up to the kidney double-J stent. The entire procedure was done with a camera and the fluoroscopy to confirm the positioning. At the termination, the patient had a good looking, well-placed and well-located stent. The patient tolerated the procedure without complication. Mart Santana MD
== END 2018-09-04 18:36 | disposition home or self-care (01) ==
LOC: ED 19:50 → ERH 09-04 00:10 → 5RSO 09-04 02:02
PROVIDERS: ADMIT Internal Medicine; ATTEND Internal Medicine
DX: N13.2 Hydronephrosis with renal and ureteral calculous obstruction (principal); N40.0 Benign prostatic hyperplasia without lower urinary tract symptoms; K21.9 Gastro-esophageal reflux disease without esophagitis; R16.0 Hepatomegaly, not elsewhere classified; Z87.891 Personal history of nicotine dependence
CPT/HCPCS: 36415; 52332; 74176; 74420; 80053; 80324; 80345; 80346; 80349; 80353; 80358; 80361; 81001; 82340; 83090; 83992; 85025; 85610; 85730; 87086; 96361; 96374; 96375; 96376; 99285; C1758; C2625; C9113; G0378; J0696; J1885; J2001; J2270; J2405; J2704; J3010; J7030; J7120; Q9966